=== PATIENT | female | born 1995 | race Caucasian/White ===

== ENCOUNTER 2024-07-07 16:44 | Outpatient (CLI) | payer OTHER, SELFPAY ==
--- NOTE | ~2024-07-07 | XR_ITS ---
CHEST RADIOGRAPH, PA AND LATERAL CLINICAL HISTORY: SOB . COMPARISON: None available TECHNIQUE: PA and lateral views of the chest. FINDINGS The cardiomediastinal silhouette is unremarkable. The lungs are clear. Visualized osseous structures and soft tissues are unremarkable. IMPRESSION: No focal infiltrate or effusion. Reviewed, dictated and finalized at location A.
--- OUTSIDE RECORDS SUMMARY | 2024-07-07 17:56 | XMS_ITS | Clinical Summary ---
Author Organization [facility] Address [address] [place] [address] Care Team Providers Care Lubrication Supervisor Name Role Phone None, Provider MD Primary Care Provider Unavaila ble Allergies Active Allergy Reactions Criticality Noted Date Comments Penicillins Itching 03/20/2020 Medications albuterol sulfate HFA 108 (90 Base) MCG/ACT inhalerIndications: Acute bronchitis Inhale 2 puffs into the lungs every 4 (four) hours as needed for Wheezing. 1 Inhaler 0 Active traMADol (ULTRAM) 50 MG tabletIndications:A cute Pain < 7 Day Supply Indications : Acute Pain < 7 Day Supply 1-2 tabs po q6 hours prn pain 16 tablet 4 Active ondansetron (ZOFRAN-ODT) 4 MG disintegrating tablet Take 1 tablet (4 mg total) by mouth every 8 (eight) hours as needed for Nausea. 12 tablet 4 Active Encounters Date Type Department Care Team Description 05/21/2024 9:08 AM CARRIAGE OPERATOR - 05/21/2024 11:59 PM [facility] Hospital Encounter [facility] [address] [facility] [place] [address] Gracie Richter, EMULSION OPERATOR- Discharge Disposition: Home or Self Care (Routine Discharge) 05/21/2024 Travel from Last 3 Months Social History Tobacco Use Types Packs/Day Years Used Date Smoking Tobacco: Never Smokeless Tobacco: Never Tobacco Cessation:Counseling Given: Not Answered Alcohol Use Standard Drinks/Week Comments Not Currently 0 (1 standard drink = 0.6 oz pur e alcohol) Comments No Sex and Gender Information Value Date Recorded Sex Assigned at Female 05/13/2024 8:33 AM CARRIAGE OPERATOR Legal Sex Female 6:16 PM CDT Gender Identity Not on file Sexual Orientation Not on file Last Filed Vital Signs Vital Sign Reading Time Taken Comments Blood Pressure 122/105 06/27/2023 1:00 PM CARRIAGE OPERATOR Pulse 88 06/27/2023 10:18 AM CARRIAGE OPERATOR Temperature 36 C (96.8 F) 06/27/2023 10:18 AM CARRIAGE OPERATOR Respiratory Rate 16 06/27/2023 10:18 AM CARRIAGE OPERATOR Oxygen Saturation 98% 06/27/2023 11:30 AM CARRIAGE OPERATOR Inhaled Oxygen Concentration - - Weight 104.3 kg (230 lb) 05/21/2024 9:00 AM CARRIAGE OPERATOR Height 162.6 cm (5' 4 ) 06/27/2023 10:18 AM CARRIAGE OPERATOR Body Mass Index 39.48 06/27/2023 10:18 AM CARRIAGE OPERATOR Plan of Treatment Health Maintenance Due Date Last Done Comments Cervical Cancer Screening Pa p Smear (Age 21 to 29) Every 3 Years 1994 Cervical Cancer Screening 1994 Annual Physical 1997 Hepatitis C 2012 DTaP, Tdap and Td Vaccines ( 1 - Tdap) 2013 Hepatitis B Vaccines (1 of 3 - 19+ 3-dose series) 2013 COVID-19 Vaccine (2023-2 5 season) 2023 Influenza Adult (#1) 2024 HPV Vaccines Aged Out No longer eligi ble based on patient's age to complete this topic Meningococcal B Vaccine Aged Out No l onger eligible based on patient's age to complete this topic Meningococcal Vaccine Aged Out No jackie ana luisa eligible based on patient's age to complete this topic Pneumococcal Vaccine: Pediat rics (0 to 5 Years) and At-Risk Patients (6 to 64 Years) Aged Out No longer eligible b ased on patient's age to complete this topic RSV Immunizations Under 20 Months Aged Out No longer eligible based on patient's age to complete this topic Procedures Procedure Name Priority Date/Time Associated Diagnosis Comments NM HEPATOBILIARY SCAN W/GB EJECTION FRACTION Routine 05/21/2024 11:04 AM CARRIAGE OPERATOR Right upper quadrant abdominal pain from Last 3 Months Results * NM HEPATOBILIARY SCAN W/GB EJECTION FRACTION (05/21/2024 11:04 AM CARRIAGE OPERATOR) Anatomical Region Laterality Modality Abdomen Nuclear Medicine 05/21/2024 11:5 3 AM CARRIAGE OPERATOR Impressions 05/21/2024 11:54 AM CARRIAGE OPERATOR IMPRESSION: Within normal limits. Ordered By: GRACIE RICHTER Interpreted By: Gerald Rangel MD, 05/21/2024 11:53 AM Narrative 05/21/2024 11:54 AM CARRIAGE OPERATOR [address] [place] [address] Examination: Hepatobiliary scan with gallbladder ejection fraction. Exam time: 0920 hours. Clinical history: Right upper quadrant pain radiating to the back. Nausea. Diarrhea. Comparison: None. Radiopharmaceutical: 6.1 mCi 99m Tc Choletec. Technique: Serial camera images. Findings: There is homogeneous uptake of the radiopharmaceutical by the liver. No focal areas of abnormal uptake are identified. There is prompt visualization of activity within the gallbladder, biliary tree and small bowel. A dose of CCK was subsequently administered intravenously and the gallbladder ejection fraction calculated. This is within normal limits at 93%. Procedure Note Gerald Rangel MD - 05/21/[address] [place] [address] Examination: Hepatobiliary scan with gallbladder ejection fraction. Exam time: 0920 hours. Clinical history: Right upper quadrant pain radiating to the back. Nausea.Diarrhea. Comparison: None. Radiopharmaceutical: 6.1 mCi 99m Tc Choletec. Technique: Serial camera images. Findings: There is homogeneous uptake of the radiopharmaceutical by theliver. No focal areas of abnormal uptake are identified. There is promptvisualization of activity within the gallbladder, biliary tree and smallbowel. A dose of CCK was subsequently administered intravenously and thegallbladder ejection fraction calculated. This is within normal limits at93%. IMPRESSION: Within normal limits. Ordered By: GRACIE RICHTER Interpreted By: Gerald Rangel MD, 05/21/2024 11:53 AM Gracie Rober EMULSION OPERATOR-BC NUC MED Final Res ult from Last 3 Months Insurance GREEN Care Teams Lubrication Supervisor Relationship Specialty Start Date End Date None, Provider, PCP - General 03/20/20
== END 2024-07-07 16:45 | disposition home or self-care (01) ==
DX: R06.02 Shortness of breath (principal)
CPT/HCPCS: 71046

== ENCOUNTER 2024-08-06 21:49 | Emergency (ER) | payer SELFPAY ==
[2024-08-06 21:50] VITALS: BP 142/89; PULSE 93; RESP 18; TEMP 36.7; O2SAT 100
--- OUTSIDE RECORDS SUMMARY | 2024-08-06 21:51 | XMS_ITS | Clinical Summary ---
Author Organization [facility] Address [address] [place] [id number] Care Team Providers Care Correspondence Specialist Name Role Phone None, Provider MD Primary [...] Department Care Team Description 05/21/2024 9:08 AM PHOTOGRAPHY TEACHER - 05/21/2024 11:59 PM [facility] Hospital Encounter [facility] [address] [place] [address] Gracie Richter, SENIOR HYDROGEOLOGIST- Discharge Disposition: Home or Self Care (Routine [...] Sex Assigned at Female 05/13/2024 8:33 AM PHOTOGRAPHY TEACHER Legal Sex Female 6:16 PM CDT Gender Identity Not on file Sexual Orientation Not on file Last Filed Vital Signs Vital Sign Reading Time Taken Comments Blood Pressure 122/105 06/27/2023 1:00 PM PHOTOGRAPHY TEACHER Pulse 88 06/27/2023 10:18 AM PHOTOGRAPHY TEACHER Temperature 36 C (96.8 F) 06/27/2023 10:18 AM PHOTOGRAPHY TEACHER Respiratory Rate 16 06/27/2023 10:18 AM PHOTOGRAPHY TEACHER Oxygen Saturation 98% 06/27/2023 11:30 AM PHOTOGRAPHY TEACHER Inhaled Oxygen Concentration - - Weight 104.3 kg (230 lb) 05/21/2024 9:00 AM PHOTOGRAPHY TEACHER Height 162.6 cm (5' 4 ) 06/27/2023 10:18 AM PHOTOGRAPHY TEACHER Body Mass Index 39.48 06/27/2023 10:18 AM PHOTOGRAPHY TEACHER Plan of Treatment Upcoming Encounters Date Type Department Care Team (Late st Contact Info) Description 08/11/2024 9:00 AM CDT Appointment [facility] [address] [place] [address] Paul Guerra, PT [address] [place] [address] Health Maintenance Due Date Last Done Comments Cervical Cancer Screening Pa p Smear (Age 21 to 29) Every 3 Years 1994 Cervical Cancer Screening 1994 Annual Physical 1997 Hepatitis C 2012 DTaP, Tdap and Td Vaccines ( 1 - Tdap) 2013 Hepatitis B Vaccines (1 of 3 - 19+ 3-dose series) 2013 COVID-19 Vaccine (2023-2 5 season) 2023 HPV Vaccines Aged Out No longer eligi [...] W/GB EJECTION FRACTION Routine 05/21/2024 11:04 AM PHOTOGRAPHY TEACHER Right upper quadrant abdominal pain from Last 3 Months Results * NM HEPATOBILIARY SCAN W/GB EJECTION FRACTION (05/21/2024 11:04 AM PHOTOGRAPHY TEACHER) Anatomical Region Laterality Modality Abdomen Nuclear Medicine 05/21/2024 11:5 3 AM PHOTOGRAPHY TEACHER Impressions 05/21/2024 11:54 AM PHOTOGRAPHY TEACHER IMPRESSION: Within normal limits. Ordered By: GRACIE RICHTER Interpreted By: Gerald Rangel MD, 05/21/2024 11:53 AM Narrative 05/21/2024 11:54 AM PHOTOGRAPHY TEACHER [address] [place] [address] Examination: Hepatobiliary scan with gallbladder ejection fraction. [...] Procedure Note Gerald Rangel MD - 05/21/[address] [place] [address] Examination: Hepatobiliary scan with gallbladder ejection fraction. [...] Gerald Rangel MD, 05/21/2024 11:53 AM Gracie Richter SENIOR HYDROGEOLOGIST-BC NUC MED Final Res ult from Last 3 Months Insurance GREEN GREEN Care Teams Correspondence Specialist Relationship Specialty Start Date End Date None, ProviderMD PCP - General 03/20/20
--- NOTE | 2024-08-06 22:04 | ED.GENADULT ---
HPI - General Adult General Chief complaint: Upper Respiratory Infection Stated complaint: difficulty swallowing Time Seen by Provider: 08/06/24 22:02 History of Present Illness HPI narrative: 28 YEARS OLD WHITE FEMALE CAME TO THE ED BY PRIVATE CAR FROM HOME WITH HER MOTHER COMPLAINING OF DIFFICULTY SWALLOWING FOR MONTHS, SCHEDULED FOR SWALLOWING STUDY BY HER FAMILY PHYSICIAN, IN THE LAST 48 HOUR BEEN HAVING BODY ACHES, FEVER 99-100.2, NOT FEELING WELL, HAVE A LOT OF STRESS LATELY. PAST MEDICAL HISTORY OF ANXIETY AND DEPRESSION. Related Data Allergies Allergy/AdvReac Type Severity Reaction Status Date / Time Penicillins Allergy Unknown Hives / Verified 08/06/24 21:55 Red Face Review of Systems Review of Systems: All systems reviewed & are unremarkable except as noted in HPI and below Exam Narrative: GENERAL APPEARANCE: WELL-DEVELOPED, WELL-NOURISHED SKIN: NORMAL COLOR HEAD: NORMOCEPHALIC, NONTRAUMATIC EYES: CLEAR CONJUNCTIVA ENT: OROPHARYNX NORMAL, EARS NORMAL, NOSE NORMAL , LARGE TONSILS WITHOUT SECRETIONS. NECK: SUPPLE, NONTENDER CHEST AND RESPIRATORY: AIRWAY PATENT, NO RESPIRATORY DISTRESS, NO ACCESSORY MUSCLE USE HEART: REGULAR RATE/RHYTHM ABDOMEN: SOFT, NONTENDER, NO ORGANOMEGALY, QUIET BOWEL SOUNDS VASCULAR: NORMAL PERIPHERAL PULSES, NORMAL CAPILLARY REFILL. MUSCULOSKELETAL: NORMAL RANGE OF MOTION, NONTENDER BACK NEUROLOGIC: ALERT AND ORIENTED ?3, AGRONOMY TECHNICIAN IS NORMAL TESTED, NO GROSS MOTOR DEFICIT Course Vital Signs Vital signs: Vital Signs Temperature 36.7 C 08/06/24 21:50 Pulse Rate 93 08/06/24 21:50 Respiratory Rate 18 08/06/24 21:50 Blood Pressure 142/89 H 08/06/24 21:50 Pulse Oximetry 100 08/06/24 21:50 Oxygen Delivery Room Air 08/06/24 21:50 Temperature 36.7 C 08/06/24 21:50 Pulse Rate 93 08/06/24 21:50 Respiratory Rate 18 08/06/24 21:50 Blood Pressure 142/89 H 08/06/24 21:50 Pulse Oximetry 100 08/06/24 21:50 Oxygen Delivery Room Air 08/06/24 21:50 Medical Decision Making MDM Narrative Medical decision making narrative: patient came with trouble swallowing for months, sore throat for the last couple days, 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 Vital signs showing blood pressure 142/89 Physical examination unremarkable except looks depressed, history of depression on anti depression medication Patient tested negative for strep, COVID, flu, RSV and mono. Patient received 1 mg of Ativan p.o. in the ED Diagnosis pharyngitis, dysphagia, discharged on Protonix. Patient is scheduled to see ear nose and throat soon for further evaluation for the dysphagia. Vital Signs Vital Signs: Vital Signs Temperature 36.7 C 08/06/24 21:50 Pulse Rate 93 08/06/24 21:50 Respiratory Rate 18 08/06/24 21:50 Blood Pressure 142/89 H 08/06/24 21:50 Pulse Oximetry 100 08/06/24 21:50 Oxygen Delivery Room Air 08/06/24 21:50 Temperature 36.7 C 08/06/24 21:50 Pulse Rate 93 08/06/24 21:50 Respiratory Rate 18 08/06/24 21:50 Blood Pressure 142/89 H 08/06/24 21:50 Pulse Oximetry 100 08/06/24 21:50 Oxygen Delivery Room Air 08/06/24 21:50 Lab Data Labs: Lab Results 08/06/24 08/06/24 08/06/24 Range/Units 21:54 22:17 23:25 Urine Color Light yellow (Yellow) Urine Appearance Clear (Clear) Urine pH 5.5 (5.0-8.0) Ur Specific [place] <= 1.005 L (1.010-1.020) Urine Protein Negative (Negative) Urine Glucose (UA) Negative (Negative) Urine Ketones 1+ H (Negative) Ur Blood (Man) Negative (Negative) Urine Nitrate Negative (Negative) Urine Bilirubin Negative (Negative) Urine Urobilinogen 0.2 (0.2-1.0) mg/dL Ur Leukocyte Esterase Cancelled Leukocyte Esterase Rfl Trace H (Negative) RIAN/UL Urine RBC 0-2 (0-2) /hpf Urine WBC 0-3 (0-3) /hpf Ur Squamous Epith Cells Few (Few) /hpf Bilirubin Crystals Cancelled Urine Bacteria Trace (None) /hpf Urine Casts Cancelled Broad Casts Cancelled Urine Test Negative Sperm Presence Cancelled Monoscreen Negative (Negative) Influenza A (RT-PCR) Negative (Negative) Influenza B (RT-PCR) Negative (Negative) RSV (RT-PCR) Negative (Negative) SARS-CoV-2 RNA (RT-PCR) Negative (Negative) Group A Strep (PCR) Not detected (Negative) Discharge Plan Discharge Clinical Impression: Dysphagia, Pharyngitis Patient Disposition: Home Condition: Stable Instructions: Pharyngitis (ED), Dysphagia (ED) Additional Instructions: Return if symptoms are worsening , call your family physician for appointment, take Tylenol as as needed for aches and pain, continue home medications. Patient Language: Citizen Of [place] Prescriptions: New pantoprazole [Protonix] 40 mg tablet,delayed release (DR/EC) 40 mg PO QAM 30 Days Qty: 30 0RF No Action norethindrone ac-eth estradiol [05/17 (21)] 1-20 mg-mcg tablet 1 tablet PO DAILY Qty: 21 0RF Rx Instructions: PT NEEDS TO BE SEEN IN THE OFFICE Follow-up/Referrals: Rafal Casillas MD [Physician] - 08/09/24 UNKNOWN,DOCTOR [Non-Staff] -
--- NOTE | 2024-08-06 22:08 | PC.NURSE ---
pt aware urine specimen is needed. pt unable to go at this time.
--- OUTSIDE RECORDS SUMMARY | 2024-08-06 22:21 | XMS_ITS | Clinical Summary ---
Author Organization [facility] Address [address] [place] [id number] Care Team Providers Care Security Systems Integrator Name Role Phone None, Provider MD Primary [...] Department Care Team Description 05/21/2024 9:08 AM CUBE CUTTER - 05/21/2024 11:59 PM [facility] Hospital Encounter [facility] [address] [facility] [place] [address] Gracie Richter, GARDENING MANAGER- Discharge Disposition: Home or Self Care (Routine [...] Sex Assigned at Female 05/13/2024 8:33 AM CUBE CUTTER Legal Sex Female 6:16 PM CDT Gender Identity Not on file Sexual Orientation Not on file Last Filed Vital Signs Vital Sign Reading Time Taken Comments Blood Pressure 122/105 06/27/2023 1:00 PM CUBE CUTTER Pulse 88 06/27/2023 10:18 AM CUBE CUTTER Temperature 36 C (96.8 F) 06/27/2023 10:18 AM CUBE CUTTER Respiratory Rate 16 06/27/2023 10:18 AM CUBE CUTTER Oxygen Saturation 98% 06/27/2023 11:30 AM CUBE CUTTER Inhaled Oxygen Concentration - - Weight 104.3 kg (230 lb) 05/21/2024 9:00 AM CUBE CUTTER Height 162.6 cm (5' 4 ) 06/27/2023 10:18 AM CUBE CUTTER Body Mass Index 39.48 06/27/2023 10:18 AM CUBE CUTTER Plan of Treatment Upcoming Encounters Date Type Department Care Team (Late st Contact Info) Description 08/11/2024 9:00 AM CDT Appointment [facility] [address] [place] [address] Paul Guerra, PT [address] [place] [address] Health Maintenance Due Date Last [...] W/GB EJECTION FRACTION Routine 05/21/2024 11:04 AM CUBE CUTTER Right upper quadrant abdominal pain from Last 3 Months Results * NM HEPATOBILIARY SCAN W/GB EJECTION FRACTION (05/21/2024 11:04 AM CUBE CUTTER) Anatomical Region Laterality Modality Abdomen Nuclear Medicine 05/21/2024 11:5 3 AM CUBE CUTTER Impressions 05/21/2024 11:54 AM CUBE CUTTER IMPRESSION: Within normal limits. Ordered By: GRACIE RICHTER Interpreted By: Gerald Rangel MD, 05/21/2024 11:53 AM Narrative 05/21/2024 11:54 AM CUBE CUTTER [address] [place] [address] Examination: Hepatobiliary scan with gallbladder ejection fraction. [...] Procedure Note Gerald Rangel MD - 05/21/[address] [place] [address] Examination: Hepatobiliary scan with gallbladder ejection fraction. [...] Rangel MD, 05/21/2024 11:53 AM Gracie Richter GARDENING MANAGER-BC NUC MED Final Res ult from Last 3 Months Insurance GREEN GREEN Care Teams Security Systems Integrator Relationship Specialty Start Date End Date None, ProviderMD PCP - General 03/20/20
[2024-08-06 22:25] LABS: Monoscreen Negative (Negative); Positive Monotest Control Positive (Positive)
[2024-08-06 22:26] LABS: Negative Monotest Control Negative (Negative)
[2024-08-06 22:40] LABS: Strep Group A RT-PCR NOT DETECTED (Negative)
[2024-08-06 22:42] LABS: Influenza A QL RT-PCR Negative (Negative); Influenza B QL RT-PCR Negative (Negative); RSV RNA, RT-PCR Negative (Negative); SARS-CoV-2 RNA PCR Negative (Negative)
[2024-08-06] MEDS: LORazepam (*CRX) 1 MG TABLET PO (22:44)
[2024-08-06 23:42] LABS: Add Urine Microscopic? YES; Appearance Urine Clear (Clear); Bilirubin Urine Negative (Negative); Blood Urine Negative (Negative); Color Urine Light Yellow (Yellow); Glucose Urine UA Negative (Negative); Ketones Urine 1+ (Negative); Leukocyte Esterase Ur Trace LEU/UL (Negative); Nitrate Urine Negative (Negative); Protein Urine Negative (Negative); Specific Grav Ur <= 1.005 (1.010-1.020); Urobilinogen Urine 0.2 mg/dL (0.2-1.0); pH Urine 5.5 (5.0-8.0)
[2024-08-06 23:43] LABS: Bacteria Urine Trace /hpf; Pregnancy On Board Control Positive; RBC Urine 0-2 /hpf (0-2); Squamous Epithelial Cell Urine Few /hpf (Few); Urine Pregnancy Test Negative; WBC Urine 0-3 /hpf (0-3)
[2024-08-07 00:09] VITALS: BP 140/82; PULSE 90; RESP 17; TEMP 36.7; O2SAT 100
== END 2024-08-07 00:11 | disposition home or self-care (01) ==
PROVIDERS: Emergency Provider Emergency Medicine
DX: R13.10 Dysphagia, unspecified (principal); J02.9 Acute pharyngitis, unspecified; Z20.822 Contact with and (suspected) exposure to COVID-19
CPT/HCPCS: 36415; 81001; 81025; 86308; 87637; 87651; 99283; A9270

== ENCOUNTER 2024-08-12 07:51 | Outpatient (CLI) | payer MEDICAID, SELFPAY ==
--- NOTE | ~2024-08-12 | US_ITS ---
EXAMINATION: US thyroid DATE: 08/12/2024 08:08 INDICATION: Dysphagia TECHNIQUE: Multiple ultrasound images of the thyroid were obtained. COMPARISON: None. FINDINGS: The right thyroid lobe measures 6.7 x 2.5 x 1.7 cm. The left thyroid lobe measures 5.7 x 1.6 x 1.5 c m. Thyroid isthmus measures 3 mm in thickness. No discrete nodules identified. There is normal echote xture, echogenicity and vascular flow throughout the thyroid gland. IMPRESSION: 1. Normal thyroid ultrasound. Reviewed, dictated and finalized at location A.
--- OUTSIDE RECORDS SUMMARY | 2024-08-12 07:56 | XMS_ITS | Encounter Summary ---
Author Organization [facility] Address Critical access hospital[address] [place] [address] Care Team Providers Care Metal Bonding Crib Attendant Name Role Phone None, Provider MD Primary Care Provider Unavaila ble Encounter Details Date Type Department Care Team (Late Contact Info) Description 08/09/2024 Orders Only [facility] [address] [place] [address] Jennifer Swenson, LIME SUPERVISOR [address] [address] Social History Tobacco Use Types Packs/Day Years Used Date Smoking Tobacco: Never Smokeless Tobacco: Never Alcohol Use Standard Drinks/Week Comments Not Currently 0 (1 standard drink = 0.6 oz pur e alcohol) Comments No Sex and Gender Information Value Date Recorded Sex Assigned at Female 05/13/2024 8:33 AM EXECUTIVE MEETING MANAGER Legal Sex Female 6:16 PM CDT Gender Identity Not on file Sexual Orientation Not on file documented as of this encounter Plan of Treatment Upcoming Encounters Date Type Department Care Team (Late Contact Info) Description 08/18/2024 9:00 AM CDT Appointment [facility] [address] [place] [address] Marylin Vazquez, PT [address] [place] [address] 08/27/2024 11:00 AM CDT Appointment [facility] [address] [place] [address] Samm Farah, NEEDLE LOOM SETTER [address] [place] [address] Carmella King, [place] [address] documented as of this encounter Results * THYROXINE, FREE (FT4) (08/09/2024 1:10 PM CDT) [facility] FREE T4 0.91 0.76 - 1.46 NG/DL 08/09/2024 1:42 PM CDT [facility] 08/09/2024 1:10 PM CDT us Jennifer Swenson APRN LABORATORY Final Re sult Performing Organization Address [facility] Co de Phone Number [facility] [address] [place] [address], [place] [phone] * THYROID STIM HORMONE TSH (08/09/2024 1:10 PM CDT) [facility] TSH 0.708 0.358 - 3.740 uIU/ML 08/09/2024 1:42 PM CDT [facility] Comment: ASSAY PERFORMED BY CHEMILUMINESCENT IMMUNOASSAY METHODOLOGY USING SIEMENS DIMENSION REAGENT. PATIENT RESULTS DETERMINED BY ASSAYS FROM DIFFERENT MANUFACTURERS AND/OR BY DIFFERENT METHODS MAY NOT BE COMPARABLE. 08/09/2024 1:10 PM CDT us Jennifer Swenson APRN LABORATORY Final Re sult [facility] [address] [place] [address], [place] [phone] * HETEROPHILE ANTIBODIES,SCREEN (08/09/2024 1:10 PM CDT) [facility] MONO TEST NEGATIVE NEGATIVE 08/09/2024 2:51 PM CDT [facility] 08/09/2024 1:10 PM CDT us Jennifer Riojast LIME SUPERVISOR LABORATORY Final Re sult Performing Organization Address [facility] Co de Phone Number [facility] [address] [place] [address], * MISCELLANEOUS LAB TEST (08/09/2024 1:10 PM CDT) TEST NAME: BRENDA BISHOP VIRUS DNA QUANTITATIVE REAL TIME PCR [id number] 08/09/2024 1:12 PM CDT [facility] SPECIMEN TYPE PLASMA EDTA 08/09/2024 1:12 PM CDT [facility] TEST RESULT: Flexitest 1 08/11/2024 10:15 PM CDT [employer] DEVIKA SCHAFFER Comment: Flexitest 1 Brenda Bishop Virus DNA, QN Real Time PCR, Plasma EBV DNA, QN PCR Not Detected IU/mL EBV DNA, QN PCR Not Detected Log IU/mL Reference Range: Not Detected For additional information, please refer to http://education.[employer]/faq/CMVandEBVPCR (This link is being provided for informational/ educational purposes only.) Test Performed by [employer] Corporation[employer]ah, [employer] [facility], [address] [place] [address] Dario Leon M.D., Ph.D., Director of Laboratories , [facility] [id number] 08/09/2024 1:10 PM CDT Jennifer Swenson LIME SUPERVISOR LABORATORY Final Re sult Performing Organization Address City/[facility]/ZIP Co de Phone Number [facility] [address] [place] [address], [place] [phone] [facility] [address] [place] [address], * (ABNORMAL) COMPREHENSIVE METABOLIC PANEL (08/09/2024 1:10 PM CDT) [facility] SODIUM S/P/B 137 136 - 145 MMOL/L 08/09/2024 1:42 PM CDT [facility] POTASSIUM S/P/B 3.8 3.5 - 5.1 MMOL/L 08/09/2024 1:42 PM CDT [facility] CHLORIDE S/P/B 101 98 - 107 MMOL/L 08/09/2024 1:42 PM CDT [facility] CO2 31.8 21.0 - 32.0 MMOL/L 08/09/2024 1:42 PM CDT [facility] GLUCOSE 86 70 - 99 MG/DL 08/09/2024 1:42 PM CDT [facility] Comment: FASTING GLUCOSE 100 TO 125 MG/DL IS CONSISTENT WITH IMPAIRED FASTING GLUCOSE. FASTING GLUCOSE >125 MG/DL IS CONSISTENT WITH DIABETES. RANDOM GLUCOSE >200 MG/DL WITH HYPERGLYCEMIC SYMPTOMS IS CONSISTENT WITH DIABETES. PER ADA GUIDELINES BUN 6 6 - 24 MG/DL 08/09/2024 1:42 PM CDT [facility] CREATININE S/P/B 0.78 0.55 - 1.02 MG/DL 08/09/2024 1:42 PM CDT [facility] CALCIUM S/P/B 9.2 8.4 - 10.5 MG/DL 08/09/2024 1:42 PM CDT [facility] BILIRUBIN TOTAL S/P/B 0.4 0.2 - 1.0 MG/DL 08/09/2024 1:42 PM CDT [facility] Comment: THIS ASSAY IS NOT RECOMMENDED FOR PATIENTS UNDERGOING TREATMENT WITH ELTROMBOPAG DUE TO THE POTENTIAL FOR FALSELY ELEVATED RESULTS. ALKALINE PHOSPHATASE S/P/B 62 37 - 98 U/L 08/09/2024 1:42 PM CDT [facility] AST 17 15 - 37 U/L 08/09/2024 1:42 PM CDT [facility] ALT 18 14 - 59 U/L 08/09/2024 1:42 PM CDT [facility] TOTAL PROTEIN S/P/B 7.4 6.4 - 8.2 G/DL 08/09/2024 1:42 PM CDT [facility] ALBUMIN S/P/B 3.7 3.4 - 5.0 G/DL 08/09/2024 1:42 PM CDT [facility] ANION GAP 4.2(L) 5.0 - 15.0 MMOL/L 08/09/2024 1:42 PM CDT [facility] OSMOLALITY (CALC) 281 MOSM/KG 025 1:42 PM CDT [facility] Comment:REFERENCE RANGE NOT ESTABLISHED GFR ESTIMATE >90 >89 ML/MIN/1. 73 M2 08/09/2024 1:42 PM CDT [facility] GFR NOTES GFR REFERENCE S: 08/09/2024 1:42 PM CDT [facility] Comment: THE ESTIMATED GFR IS CALCULATED USING THE 2020 CKD-EPI EQUATION. THE FOLLOWING CATEGORIES FOR GRADING RENAL FUNCTION ARE RECOMMENDED BY THE INTERNATIONAL SOCIETY OF NEPHROLOGY (KDIGO 2012 CLINICAL PRACTICE GUIDELINE). G1,NORMAL OR HIGH: >89 ml/min/1.73 m2 G2,MILDLY DECREASED: 60-89 ml/min/1.73 m2 G3A,MILDLY TO MODERATELY DECREASED: 45-59 ml/min/1.73 m2 G3B,MODERATELY TO SEVERELY DECREASED: 30-44 ml/min/1.73 m2 G4,SEVERELY DECREASED: 15-29 ml/min/1.73 m2 G5,KIDNEY FAILURE: <15 ml/min/1.73 m2 08/09/2024 1:10 PM CDT Jennifer Swenson LIME SUPERVISOR LABORATORY Final Re sult [facility] [address] [place] [address], * (ABNORMAL) CBC W/DIFF AUTOMATED (08/09/2024 1:10 PM CDT) WBC 8.93 4.00 - 10.80 x10'3/uL 08/09/2024 1:16 PM CDT [facility] RBC 4.36 4.10 - 5.40 x10'6/uL 08/09/2024 1:16 PM CDT [facility] HGB 14.1 12.0 - 16.0 G/DL 08/09/2024 1:16 PM CDT [facility] HCT 39.2 36.0 - 47.0 % 08/09/2024 1:16 PM CDT [facility] MCV 89.9 78.0 - 100.0 FL 08/09/2024 1:16 PM CDT [facility] MCH 32.3(H) 27.0 - 31.0 PG 08/09/2024 1:16 PM CDT [facility] MCHC 36.0 33.0 - 36.0 G/DL 08/09/2024 1:16 PM CDT [facility] RDW 11.7 11.5 - 14.5 % 08/09/2024 1:16 PM CDT [facility] PLT 374(H) 150 - 350 x10'3/uL 08/09/2024 1:16 PM CDT [facility] MPV 9.3 7.4 - 10.4 FL 08/09/2024 1:16 PM CDT [facility] CBC COMMENT NORMAL REFERENCE RANGE NOT ESTABLISHED FOR THE PROPORTIONAL LEUKOCYTE DIFFERENTIAL. 08/09/2024 1:16 PM CDT [facility] NEUTROPHILS % 67.4 % 08/09/2024 1:16 PM CDT [facility] LYMPHOCYTES % 25.4 % 08/09/2024 1:16 PM CDT [facility] MONOCYTES % 5.6 % 08/09/2024 1:16 PM CDT [facility] EOSINOPHILS % 1.2 % 08/09/2024 1:16 PM CDT [facility] BASOPHILS % 0.2 % 08/09/2024 1:16 PM CDT [facility] IMMATURE GRANS % 0.2 % 08/10/19 1:16 PM CDT [facility] NRBC % 0.0 % 08/09/2024 1:16 PM CDT [facility] ABS. NEUTROPHILS 6.01 1.60 - 8.30 x10'3/uL 08/09/2024 1:16 PM CDT [facility] ABS. LYMPHOCYTES 2.27 0.80 - 4.70 x10'3/uL 08/09/2024 1:16 PM CDT [facility] ABS. MONOCYTES 0.50 0.00 - 1.50 x10'3/uL 08/09/2024 1:16 PM CDT [facility] ABS. EOSINOPHILS 0.11 0.00 - 0.40 x10'3/uL 08/09/2024 1:16 PM CDT [facility] ABS. BASOPHILS 0.02 0.00 - 0.20 x10'3/uL 08/09/2024 1:16 PM CDT [facility] ABS. IMMATURE GRANULOCYTES 0.02 0.00 - 0.03 x10'3/uL 08/09/2024 1:16 PM CDT [facility] ABS. NUCLEATED RBC'S 0.00 0.00 - 0.01 x10'3/uL 08/09/2024 1:16 PM CDT [facility] 08/09/2024 1:10 PM CDT Jennifer Swenson APRN LABORATORY Final Re sult [facility] [address] [place] [address], documented in this encounter Visit Diagnoses Diagnosis Acute pharyngitis- Primary Other dysphagia documented in this encounter Care Teams Metal Bonding Crib Attendant Relationship Specialty Start Date End Date None, Provider, PCP - General 03/20/20 documented as of this encounter
--- OUTSIDE RECORDS SUMMARY | 2024-08-12 07:56 | XMS_ITS | Clinical Summary ---
Author Organization [facility] Address [address] [place] [address] Care Team Providers Care Medical Parasitologist Name Role Phone None, Provider MD Primary [...] Encounters Date Type Department Care Team Description 08/09/2024 12:54 PM CDT - 08/09/2024 11:59 PM CDT [place] [address] [id number] Jennifer Swenson, WIND TUNNEL ENGINEER Arrived Discharge Disposition: Home or Self Care (Routine Discharge) 08/09/[address] [place] [address] [address] [id number] Jennifer Swenson, WIND TUNNEL ENGINEER 08/09/2024 Travel 05/21/2024 9:08 AM BRAZER RESISTANCE - 05/21/2024 11:59 PM BRAZER RESISTANCE Hospital Encounter [facility] [address] [id number] [facility] Discharge Disposition: Home or Self Care (Routine [...] Sex Assigned at Female 05/13/2024 8:33 AM BRAZER RESISTANCE Legal Sex Female 6:16 PM CDT Gender Identity Not on file Sexual Orientation Not on file Last Filed Vital Signs Vital Sign Reading Time Taken Comments Blood Pressure 122/105 06/27/2023 1:00 PM BRAZER RESISTANCE Pulse 88 06/27/2023 10:18 AM BRAZER RESISTANCE Temperature 36 C (96.8 F) 06/27/2023 10:18 AM BRAZER RESISTANCE Respiratory Rate 16 06/27/2023 10:18 AM BRAZER RESISTANCE Oxygen Saturation 98% 06/27/2023 11:30 AM BRAZER RESISTANCE Inhaled Oxygen Concentration - - Weight 104.3 kg (230 lb) 05/21/2024 9:00 AM BRAZER RESISTANCE Height 162.6 cm (5' 4 ) 06/27/2023 10:18 AM BRAZER RESISTANCE Body Mass Index 39.48 06/27/2023 10:18 AM BRAZER RESISTANCE Plan of Treatment Upcoming Encounters Date Type Department Care Team (Late st Contact Info) Description 08/18/2024 9:00 AM CDT Appointment [facility] [address] [place], [place] [id number] Marylin Vazquez, PT [address] [place] [address] 08/27/2024 11:00 AM CDT Appointment [facility] [address] [facility] [place] [address] Samm Farah, COMMUNITY CASE MANAGER [address] [place] [address] Carmella King, [address] [address] Health Maintenance Due Date Last Done Comments [...] 5 Years) and At-Risk Patients (6 to 49 Years) Aged Out No longer eligible b ased on patient's age to complete this topic RSV Immunizations Under 20 Months Aged Out No longer eligible based on patient's age to complete this topic Procedures Procedure Name Priority Date/Time Associated Diagnosis Comments THYROXINE, FREE (FT4) Routine 08/09/2024 1:10 PM CDT Acute pharyngitis Other dysphagia THYROID STIM HORMONE TSH Routine 08/09/2024 1:10 PM CDT Acute pharyngitis Other dysphagia HETEROPHILE ANTIBODIES,SCREEN Routine 08/09/2024 1:10 PM CDT Acute pharyngitis Other dysphagia MISCELLANEOUS LAB TEST Routine 1:10 PM CDT Acute pharyngitis Other dysphagia COMPREHENSIVE METABOLIC PANEL Routine 08/09/2024 1:10 PM CDT Acute pharyngitis Other dysphagia CBC W/DIFF AUTOMATED Routine 08/09/2024 1:10 PM CDT Acute pharyngitis Other dysphagia NM HEPATOBILIARY SCAN W/GB EJECTION FRACTION Routine 05/21/2024 11:04 AM BRAZER RESISTANCE Right upper quadrant abdominal pain from Last 3 Months Results * MISCELLANEOUS LAB TEST (08/09/2024 1:10 PM CDT) Pathologist [facility] TEST NAME: NATALIE BISHOP VIRUS DNA QUANTITATIVE REAL TIME PCR [id number] 08/09/2024 1:12 PM CDT [facility] SPECIMEN TYPE PLASMA EDTA 08/09/2024 1:12 PM CDT [facility] TEST RESULT: Flexitest 1 08/11/2024 10:15 PM CDT [employer] MILADYSЮЛИЯ SCHAFFER Comment: Flexitest 1 Natalie Bishop Virus DNA, QN Real Time PCR, Plasma EBV DNA, QN PCR Not Detected IU/mL EBV DNA, QN PCR Not Detected Log IU/mL Reference Range: Not Detected For additional information, please refer to http://education.[employer]/faq/CMVandEBVPCR (This link is being provided for informational/ educational purposes only.) Test Performed by [employer]ah, [employer] [facility], [address] [place] [address] Dario Leon M.D., Ph.D., Director of Laboratories , CLIA [id number] 08/09/2024 1:10 PM CDT Jennifer Swenson APRN LABORATORY Final Re sult [email or web address] [address] , [place] [phone] [facility] [place] [address], * (ABNORMAL) COMPREHENSIVE METABOLIC PANEL (08/09/2024 1:10 PM CDT) [facility] SODIUM S/P/B 137 136 - 145 MMOL/L 08/09/2024 1:42 PM CDT [facility] POTASSIUM S/P/B 3.8 3.5 - 5.1 MMOL/L 08/09/2024 1:42 PM CDT [facility] CHLORIDE S/P/B 101 98 - 107 MMOL/L 08/09/2024 1:42 PM CDT [facility] CO2 31.8 21.0 - 32.0 MMOL/L 08/09/2024 1:42 PM CDT [facility] GLUCOSE 86 70 - 99 MG/DL 08/09/2024 1:42 PM CDT [facility] Comment: FASTING GLUCOSE 100 TO 125 MG/DL IS CONSISTENT WITH IMPAIRED FASTING GLUCOSE. FASTING GLUCOSE >125 MG/DL IS CONSISTENT WITH DIABETES. RANDOM GLUCOSE >200 MG/DL WITH HYPERGLYCEMIC SYMPTOMS IS CONSISTENT WITH DIABETES. PER ADA GUIDELINES BUN 6 6 - 24 MG/DL 08/09/2024 1:42 PM CDT [facility] CREATININE S/P/B 0.78 0.55 - 1.02 MG/DL 08/09/2024 1:42 PM CDT [facility] CALCIUM S/P/B 9.2 8.4 - 10.5 MG/DL 08/09/2024 1:42 PM CDT [facility] BILIRUBIN TOTAL S/P/B 0.4 0.2 - 1.0 MG/DL 08/09/2024 1:42 PM CDT [facility] Comment: THIS ASSAY IS NOT RECOMMENDED FOR PATIENTS UNDERGOING TREATMENT WITH ELTROMBOPAG DUE TO THE POTENTIAL FOR FALSELY ELEVATED RESULTS. ALKALINE PHOSPHATASE S/P/B 62 37 - 98 U/L 08/09/2024 1:42 PM CDT [facility] AST 17 15 - 37 U/L 08/09/2024 1:42 PM CDT [facility] ALT 18 14 - 59 U/L 08/09/2024 1:42 PM CDT [facility] TOTAL PROTEIN S/P/B 7.4 6.4 - 8.2 G/DL 08/09/2024 1:42 PM CDT [facility] ALBUMIN S/P/B 3.7 3.4 - 5.0 G/DL 08/09/2024 1:42 PM CDT [facility] ANION GAP 4.2(L) 5.0 - 15.0 MMOL/L 08/09/2024 1:42 PM CDT [facility] OSMOLALITY (CALC) 281 MOSM/KG 025 1:42 PM CDT [facility] Comment:REFERENCE RANGE NOT ESTABLISHED GFR ESTIMATE >90 >89 ML/MIN/1. 73 M2 08/09/2024 1:42 PM CDT [facility] GFR NOTES GFR REFERENCE S: 08/09/2024 1:42 PM CDT [facility] Comment: THE ESTIMATED GFR IS CALCULATED [...] <15 ml/min/1.73 m2 08/09/2024 1:10 PM CDT us Jennifer Swenson APRN LABORATORY Final Re sult Performing Organization Address City/[facility]/ZIP Co de Phone Number [facility] [address] [place] [address], * HETEROPHILE ANTIBODIES,SCREEN (08/09/2024 1:10 PM CDT) MONO TEST NEGATIVE NEGATIVE 08/09/2024 2:51 PM CDT [facility] 08/09/2024 1:10 PM CDT us Jennifer Swenson WIND TUNNEL ENGINEER LABORATORY Final Re sult Performing Organization Address City/[facility]/ZIP Co de Phone Number [facility] [address] [place] [address], [place] [phone] * (ABNORMAL) CBC W/DIFF AUTOMATED (08/09/2024 1:10 PM CDT) WBC 8.93 4.00 - 10.80 x10'3/uL 08/09/2024 1:16 PM CDT [facility] RBC 4.36 4.10 - 5.40 x10'6/uL 08/09/2024 1:16 PM CDT [facility] HGB 14.1 12.0 - 16.0 G/DL 08/09/2024 1:16 PM CDT [facility] HCT 39.2 36.0 - 47.0 % 08/09/2024 1:16 PM CDT [facility] MCV 89.9 78.0 - 100.0 FL 08/09/2024 1:16 PM CDT [facility] MCH 32.3(H) 27.0 - 31.0 PG 08/09/2024 1:16 PM CDT [facility] MCHC 36.0 33.0 - 36.0 G/DL 08/09/2024 1:16 PM CDT [facility] RDW 11.7 11.5 - 14.5 % 08/09/2024 1:16 PM CDT [facility] PLT 374(H) 150 - 350 x10'3/uL 08/09/2024 1:16 PM CDT [facility] MPV 9.3 7.4 - 10.4 FL 08/09/2024 1:16 PM CDT [facility] CBC COMMENT NORMAL REFERENCE RANGE NOT ESTABLISHED FOR THE PROPORTIONAL LEUKOCYTE DIFFERENTIAL. 08/09/2024 1:16 PM CDT [facility] NEUTROPHILS % 67.4 % 08/09/2024 1:16 PM CDT [facility] LYMPHOCYTES % 25.4 % 08/09/2024 1:16 PM CDT [facility] MONOCYTES % 5.6 % 08/09/2024 1:16 PM CDT [facility] EOSINOPHILS % 1.2 % 08/09/2024 1:16 PM CDT [facility] BASOPHILS % 0.2 % 08/09/2024 1:16 PM CDT [facility] IMMATURE GRANS % 0.2 % 08/10/19 1:16 PM CDT [facility] NRBC % 0.0 % 08/09/2024 1:16 PM CDT [facility] ABS. NEUTROPHILS 6.01 1.60 - 8.30 x10'3/uL 08/09/2024 1:16 PM CDT [facility] ABS. LYMPHOCYTES 2.27 0.80 - 4.70 x10'3/uL 08/09/2024 1:16 PM CDT [facility] ABS. MONOCYTES 0.50 0.00 - 1.50 x10'3/uL 08/09/2024 1:16 PM CDT [facility] ABS. EOSINOPHILS 0.11 0.00 - 0.40 x10'3/uL 08/09/2024 1:16 PM CDT [facility] ABS. BASOPHILS 0.02 0.00 - 0.20 x10'3/uL 08/09/2024 1:16 PM CDT [facility] ABS. IMMATURE GRANULOCYTES 0.02 0.00 - 0.03 x10'3/uL 08/09/2024 1:16 PM CDT [facility] ABS. NUCLEATED RBC'S 0.00 0.00 - 0.01 x10'3/uL 08/09/2024 1:16 PM CDT [facility] 08/09/2024 1:10 PM CDT Jennifer Swenson APRN LABORATORY Final Re sult [facility] [address] [place] [address], * THYROXINE, FREE (FT4) (08/09/2024 1:10 PM CDT) FREE T4 0.91 0.76 - 1.46 NG/DL 08/09/2024 1:42 PM CDT [facility] 08/09/2024 1:10 PM CDT Jennifer Swenson APRN LABORATORY Final Re sult Performing Organization Address [facility] de Phone Number [facility] [address] [place] [address], [place] [phone] * THYROID STIM HORMONE TSH (08/09/2024 1:10 PM CDT) TSH 0.708 0.358 - 3.740 uIU/ML 08/09/2024 1:42 PM CDT [facility] Comment: ASSAY PERFORMED BY CHEMILUMINESCENT IMMUNOASSAY METHODOLOGY USING [employer] DIMENSION REAGENT. PATIENT RESULTS DETERMINED BY ASSAYS FROM DIFFERENT MANUFACTURERS AND/OR BY DIFFERENT METHODS MAY NOT BE COMPARABLE. 08/09/2024 1:10 PM CDT Jennifer Swenson APRN LABORATORY Final Mayuri harrison Performing Organization Address [facility] de Phone Number [facility] [address] [place] [address], [place] [phone] * NM HEPATOBILIARY SCAN W/GB EJECTION FRACTION (05/21/2024 11:04 AM BRAZER RESISTANCE) Anatomical Region Laterality Modality Abdomen Nuclear Medicine 05/21/2024 11:5 3 AM BRAZER RESISTANCE Impressions 05/21/2024 11:54 AM BRAZER RESISTANCE IMPRESSION: Within normal limits. Ordered By: GRACIE RICHTER Interpreted By: Gerald Rangel MD, 05/21/2024 11:53 AM Narrative 05/21/2024 11:54 AM BRAZER RESISTANCE [address] [place] [address] Examination: Hepatobiliary scan with gallbladder ejection fraction. [...] Procedure Note Gerald Rangel MD - 05/21/2024 [place] [address] [facility] [address] Examination: Hepatobiliary scan with gallbladder ejection fraction. [...] Rangel MD, 05/21/2024 11:53 AM Gracie Richter CIVIL ENGINEERING INTERN- [facility] Final Res ult from Last 3 Months Insurance [place] [employer] Care Teams Medical Parasitologist Relationship Specialty Start Date End Date None, Provider, PCP - General 03/20/20
== END 2024-08-12 07:52 | disposition home or self-care (01) ==
DX: R13.19 Other dysphagia (principal)
CPT/HCPCS: 76536

== ENCOUNTER 2024-08-25 12:38 | Outpatient (CLI) | payer MEDICAID, SELFPAY ==
--- NOTE | ~2024-08-25 | CT_ITS ---
CT Facial Bones Clinical Indication: Vision changes, right facial swelling and headache Technique: Contiguous axial scans were obtained through the facial bones followed by coronal and sagi ttal reconstructions. Dose reduction technique was used on this scan by utilizing automated exposure control and iterative reconstruction technique. The dose-length product (DLP) was 605.33 mGy-cm. Findings: No fractures are identified. The visualized paranasal sinuses are clear. Intraorbital soft tissues appear normal. Impression: No significant abnormality seen. Reviewed, dictated and finalized at location M. Impression: No significant abnormality seen.
--- NOTE | ~2024-08-25 | CT_ITS ---
Non-contrast Head CT History: Vision changes, right facial swelling and headache Technique: Axial non-contrast imaging of the brain was performed. Dose reduction technique was used on this scan by utilizing automated exposure control and iterative reconstruction technique. The dose -length product (DLP) was 605.33 mGy-cm. Findings: There is no evidence of intracranial hemorrhage, mass lesion, or acute infarct. Brain par enchyma appears normal. The ventricles and subarachnoid spaces are normal in size. The calvarium ap pears normal. The visualized paranasal sinuses and mastoid air cells are clear. Impression: No significant abnormality seen. Reviewed, dictated and finalized at location . Impression: No significant abnormality seen.
--- OUTSIDE RECORDS SUMMARY | 2024-08-25 13:29 | XMS_ITS | Encounter Summary ---
Author Organization [facility] Address [facility] [place] [address] Care Team Providers Care Typewriter Assembler Name Role Phone None, Provider Primary Care Provider Unavaila ble Encounter Details Date Type Department Care Team (Late Contact Info) Description 08/23/2024 Orders Only [facility] [address] [place] [address] Jennifer Swenson, ADVISORY APPLICATION DEVELOPER [address] [address] Social History Tobacco Use Types Packs/Day Years Used Date Smoking Tobacco: Never Smokeless Tobacco: Never Alcohol Use Standard Drinks/Week Comments Not Currently 0 (1 standard drink = 0.6 oz pur e alcohol) Comments No Sex and Gender Information Value Date Recorded Sex Assigned at Female 05/13/2024 8:33 AM TREASURY MANAGER Legal Sex Female 6:16 PM CDT Gender Identity Not on file Sexual Orientation Not on file documented as of this encounter Plan of Treatment Upcoming Encounters Date Type Department Care Team (Late Contact Info) Description 08/27/2024 11:00 AM CDT Appointment [facility] [address] [place] [address] Samm Farah, ENVIRONMENTAL PROPERTY ASSESSOR [address] [place], [place] [id number] Carmella King, CARE PROFESSIONAL [address] [place] [id number] documented as of this encounter Results * SED RATE, ERYTHROCYTE (ESR) (08/23/2024 12:03 PM CDT) ESR 14 0 - 20 MM/HR 08/23/2024 12:29 PM CDT [facility] 08/23/2024 12:0 3 PM CDT Jennifer Swenson ADVISORY APPLICATION DEVELOPER LABORATORY Final Re sult Performing Organization Address City/[facility]/ZIP Co de Phone Number [facility] [address] [place] [address], [place] [phone] * RHEUMATOID FACTOR, QUANT (08/23/2024 12:03 PM CDT) Pathologist [facility] RHEUMATOID FACTOR <10 <15 IU/ML 08/24/2024 3:24 PM CDT [facility] 08/23/2024 12:0 3 PM CDT Jennifer Swenson ADVISORY APPLICATION DEVELOPER LABORATORY Final Re sult [facility] [address] [place] [address], [place] [phone] * (ABNORMAL) CBC W/DIFF AUTOMATED (08/23/2024 12:03 PM CDT) WBC 9.52 4.00 - 10.80 x10'3/uL 08/23/2024 12:20 PM CDT [facility] RBC 4.23 4.10 - 5.40 x10'6/uL 08/23/2024 12:20 PM CDT [facility] HGB 13.5 12.0 - 16.0 G/DL 08/23/2024 12:20 PM CDT [facility] HCT 38.7 36.0 - 47.0 % 08/23/2024 12:20 PM CDT [facility] MCV 91.5 78.0 - 100.0 FL 08/23/2024 12:20 PM CDT [facility] MCH 31.9(H) 27.0 - 31.0 PG 08/23/2024 12:20 PM CDT [facility] MCHC 34.9 33.0 - 36.0 G/DL 08/23/2024 12:20 PM CDT [facility] RDW 11.9 11.5 - 14.5 % 08/23/2024 12:20 PM CDT [facility] PLT 336 150 - 350 x10'3/uL 08/23/2024 12:20 PM CDT [facility] MPV 9.7 7.4 - 10.4 FL 08/23/2024 12:20 PM CDT [facility] CBC COMMENT NORMAL REFERENCE RANGE NOT ESTABLISHED FOR THE PROPORTIONAL LEUKOCYTE DIFFERENTIAL. 08/23/2024 12:20 PM CDT [facility] NEUTROPHILS % 68.4 % 08/23/2024 12:20 PM CDT [facility] LYMPHOCYTES % 24.8 % 08/23/2024 12:20 PM CDT [facility] MONOCYTES % 4.5 % 08/23/2024 12:20 PM CDT [facility] EOSINOPHILS % 1.7 % 08/23/2024 12:20 PM CDT [facility] BASOPHILS % 0.2 % 08/23/2024 12:20 PM CDT [facility] IMMATURE GRANS % 0.4 % 08/24/19 12:20 PM CDT [facility] NRBC % 0.0 % 08/23/2024 12:20 PM CDT [facility] ABS. NEUTROPHILS 6.51 1.60 - 8.30 x10'3/uL 08/23/2024 12:20 PM CDT [facility] ABS. LYMPHOCYTES 2.36 0.80 - 4.70 x10'3/uL 08/23/2024 12:20 PM CDT [facility] ABS. MONOCYTES 0.43 0.00 - 1.50 x10'3/uL 08/23/2024 12:20 PM CDT [facility] ABS. EOSINOPHILS 0.16 0.00 - 0.40 x10'3/uL 08/23/2024 12:20 PM CDT [facility] ABS. BASOPHILS 0.02 0.00 - 0.20 x10'3/uL 08/23/2024 12:20 PM CDT [facility] ABS. IMMATURE GRANULOCYTES 0.04(H) 0.00 - 0.03 x10'3/uL 08/23/2024 12:20 PM CDT [facility] ABS. NUCLEATED RBC'S 0.00 0.00 - 0.01 x10'3/uL 08/23/2024 12:20 PM CDT [facility] 08/23/2024 12:0 3 PM CDT us Jennifer Swenson APRN LABORATORY Final Re sult Performing Organization Address [facility] de Phone Number [facility] [place] [address], * ANTINUCLEAR ANTIBODY [place] RFX (08/23/2024 12:03 PM CDT) KHOA 0.3 08/24/2024 11:28 AM CDT [facility] Comment: NEGATIVE: <0.7 RATIO KHOA PROFILE AND TITER NOT PERFORMED THE KHOA SCREEN TESTS FOR THE FOLLOWING ANTIBODIES BY EIA: SSA1 (RO), SSB1 (LA), RECINOS, SCL70, JO1, CENTROMERE, CUSTOMER EQUIPMENT ENGINEER HISTONE MUST BE ORDERED SEPARATELY DNA (DS) ANTIBODY <0.6 IU/ML 025 11:28 AM CDT [facility] Comment: NEGATIVE: <10 IU/mL EQUIVOCAL: 10 to 15 IU/mL POSITIVE: >15 IU/mL THIS QUANTITATIVE ASSAY IS CALIBRATED TO THE [employer]'S WO/80 STANDARD. THE LEVEL OF dsDNA AUTOANTIBODY GERERALLY CORRELATES WITH THE LEVEL OF DISEASE ACTIVITY IN SYSTEMIC LUPUS ERYTHMATOSUS 08/23/2024 12:0 3 PM CDT us Jennifer Swenson APRN LABORATORY Final Re sult Performing Organization Address City/[facility]/ZIP Co de Phone Number [facility] [address] [place] [address], [phone] documented in this encounter Visit Diagnoses Diagnosis Unspecified subjective visual disturbances- Primary Anesthesia of skin Disturbance of skin sensation Localized swelling, mass and lump, head documented in this encounter Care Teams Typewriter Assembler Relationship Specialty Start Date End Date None, Provider, PCP - General 03/20/20 documented as of this encounter
--- OUTSIDE RECORDS SUMMARY | 2024-08-25 13:29 | XMS_ITS | Encounter Summary ---
Author Organization [facility] Address [address] [place] [id number] Care Team Providers Care Vending Technician Name Role Phone None, Provider Primary Care Provider Patricia conroy Encounter Details Date Type Department Care Team (Latest Contact Info) Description 08/23/2024 11:45 AM CDT - 08/23/2024 11:59 PM CDT Hospital Encounter [facility] [address] [facility] [place] [address] Jennifer Swenson, VALVE PIPE IRRIGATOR [address] [address] Arrived Discharge Disposition: Home or Self Care (Routine Discharge) Social History Tobacco Use Types Packs/Day Years Used Date Smoking Tobacco: Never Smokeless Tobacco: Never Alcohol Use Standard Drinks/Week Comments Not Currently 0 (1 standard drink = 0.6 oz pur e alcohol) Comments No Sex and Gender Information Value Date Recorded Sex Assigned at Female 05/13/2024 8:33 AM SOAP PRESS FEEDER Legal Sex Female 6:16 PM CDT Gender Identity Not on file Sexual Orientation Not on file documented as of this encounter Medications at Time of Discharge albuterol sulfate HFA 108 (90 Base) MCG/ACT inhalerIndications:A cute bronchitis Inhale 2 puffs into the lungs every 4 (four) hours as needed for Wheezing. 1 Inhaler 03/20/2020 ondansetron (ZOFRAN-ODT) 4 MG disintegrating tablet Take 1 tablet (4 mg total) by mouth every 8 (eight) hours as needed for Nausea. 12 tablet 06/27/2023 traMADol (ULTRAM) 50 MG tabletIndications:Ac star Pain < 7 Day Supply Indications: Acute Pain < 7 Day Supply 1-2 tabs po q6 hours prn pain 16 tablet 06/27/2023 documented as of this encounter Plan of Treatment Upcoming Encounters Date Type Department Care Team (Late st Contact Info) Description 08/27/2024 11:00 AM CDT Appointment [facility] [address] [facility] [place] [address] Samm Farah, EXERCISE SPECIALIST [address] [place] [address] Carmella King, ANIMAL RESEARCHER [address] [place] [address] documented as of this encounter Procedures Procedure Name Priority Date/Time Associated Diagnosis Comments ANTINUCLEAR ANTIBODY WI RFX Routine 08/23/2024 12:03 PM CDT Unspecified subjective visual disturbances Anesthesia of skin Localized swelling, mass and lump, head RHEUMATOID FACTOR, QUANT Routine 08/23/2024 12:03 PM CDT Unspecified subjective visual disturbances Anesthesia of skin Localized swelling, mass and lump, head SED RATE, ERYTHROCYTE (ESR) Routine 08/23/2024 12:03 PM CDT Unspecified subjective visual disturbances Anesthesia of skin Localized swelling, mass and lump, head CBC W/DIFF AUTOMATED Routine 08/23/2024 12:03 PM CDT Unspecified subjective visual disturbances Anesthesia of skin Localized swelling, mass and lump, head documented in this encounter Results * SED RATE, ERYTHROCYTE (ESR) (08/23/2024 12:03 PM CDT) ESR 14 0 - 20 MM/HR 08/23/2024 12:29 PM CDT [facility] 08/23/2024 12:0 3 PM CDT Jennifer Swenson VALVE PIPE IRRIGATOR LABORATORY Final Re sult [facility] [address] [place] [address], [place] [phone] * RHEUMATOID FACTOR, QUANT (08/23/2024 12:03 PM CDT) Pathologist [facility] RHEUMATOID FACTOR <10 <15 IU/ML 08/24/2024 3:24 PM CDT [facility] 08/23/2024 12:0 3 PM CDT Jennifer Swenson VALVE PIPE IRRIGATOR LABORATORY Final Re sult Performing Organization Address City/[facility]/ZIP Co de Phone Number [facility] [address] [place] [address], [place] [phone] * (ABNORMAL) CBC W/DIFF AUTOMATED (08/23/2024 12:03 PM CDT) Pathologist [facility] WBC 9.52 4.00 - 10.80 x10'3/uL 08/23/2024 12:20 PM CDT [facility] RBC 4.23 4.10 - 5.40 x10'6/uL 08/23/2024 12:20 PM CDT [facility] HGB 13.5 12.0 - 16.0 G/DL 08/23/2024 12:20 PM CDT [facility] HCT 38.7 36.0 - 47.0 % 08/23/2024 12:20 PM CDT [facility] MCV 91.5 78.0 - 100.0 FL 08/23/2024 12:20 PM CDT [facility] MCH 31.9(H) 27.0 - 31.0 PG 08/23/2024 12:20 PM CDT [facility] MCHC 34.9 33.0 - 36.0 G/DL 08/23/2024 12:20 PM CDT [facility] RDW 11.9 11.5 - 14.5 % 08/23/2024 12:20 PM CDT [facility] PLT 336 150 - 350 x10'3/uL 08/23/2024 12:20 PM CDT [facility] MPV 9.7 7.4 - 10.4 FL 08/23/2024 12:20 PM CDT [facility] CBC COMMENT NORMAL REFERENCE RANGE NOT ESTABLISHED FOR THE PROPORTIONAL LEUKOCYTE DIFFERENTIAL. 08/23/2024 12:20 PM CDT [facility] NEUTROPHILS % 68.4 % 08/23/2024 12:20 PM CDT [facility] LYMPHOCYTES % 24.8 % 08/23/2024 12:20 PM CDT [facility] MONOCYTES % 4.5 % 08/23/2024 12:20 PM CDT [facility] EOSINOPHILS % 1.7 % 08/23/2024 12:20 PM CDT [facility] BASOPHILS % 0.2 % 08/23/2024 12:20 PM CDT [facility] IMMATURE GRANS % 0.4 % 08/24/19 12:20 PM CDT [facility] NRBC % 0.0 % 08/23/2024 12:20 PM CDT [facility] ABS. NEUTROPHILS 6.51 1.60 - 8.30 x10'3/uL 08/23/2024 12:20 PM CDT [facility] ABS. LYMPHOCYTES 2.36 0.80 - 4.70 x10'3/uL 08/23/2024 12:20 PM CDT [facility] ABS. MONOCYTES 0.43 0.00 - 1.50 x10'3/uL 08/23/2024 12:20 PM CDT [facility] ABS. EOSINOPHILS 0.16 0.00 - 0.40 x10'3/uL 08/23/2024 12:20 PM CDT [facility] ABS. BASOPHILS 0.02 0.00 - 0.20 x10'3/uL 08/23/2024 12:20 PM CDT [facility] ABS. IMMATURE GRANULOCYTES 0.04(H) 0.00 - 0.03 x10'3/uL 08/23/2024 12:20 PM CDT [facility] ABS. NUCLEATED RBC'S 0.00 0.00 - 0.01 x10'3/uL 08/23/2024 12:20 PM CDT [facility] 08/23/2024 12:0 3 PM CDT Jennifer Swenson VALVE PIPE IRRIGATOR LABORATORY Final Re sult Performing Organization Address City/[facility]/ZIP Co de Phone Number [facility] [address] [place] [address], [place] [phone] * ANTINUCLEAR ANTIBODY WI RFX (08/23/2024 12:03 PM CDT) KHOA 0.3 08/24/2024 11:28 AM CDT [facility] Comment: NEGATIVE: <0.7 RATIO KHOA PROFILE AND TITER NOT PERFORMED THE KHOA SCREEN TESTS FOR THE FOLLOWING ANTIBODIES BY EIA: SSA1 (RO), SSB1 (LA), RECINOS, SCL70, JO1, CENTROMERE, CHANGE MANAGEMENT COORDINATOR HISTONE MUST BE ORDERED SEPARATELY DNA (DS) ANTIBODY <0.6 IU/ML 025 11:28 AM CDT [facility] Comment: NEGATIVE: <10 IU/mL EQUIVOCAL: 10 to 15 IU/mL POSITIVE: >15 IU/mL THIS QUANTITATIVE ASSAY IS CALIBRATED TO THE [employer]'S WO/80 STANDARD. THE LEVEL OF dsDNA AUTOANTIBODY GERERALLY CORRELATES WITH THE LEVEL OF DISEASE ACTIVITY IN SYSTEMIC LUPUS ERYTHMATOSUS 08/23/2024 12:0 3 PM CDT Jennifer Swenson VALVE PIPE IRRIGATOR LABORATORY Final Re sult Performing Organization Address City/[facility]/ZIP Co de Phone Number [facility] [address] [place] [address], [place] [phone] documented in this encounter Visit Diagnoses Diagnosis Unspecified subjective visual disturbances Anesthesia of skin Disturbance of skin sensation Localized swelling, mass and lump, head documented in this encounter Care Teams Vending Technician Relationship Specialty Start Date End Date None, Provider, PCP - General 03/20/20 documented as of this encounter
--- OUTSIDE RECORDS SUMMARY | 2024-08-25 13:30 | XMS_ITS | Clinical Summary ---
Author Organization [facility] Address [address] [place] [address] Care Team Providers Care Application Support Manager Name Role Phone None, Provider MD Primary [...] needed for Nausea. 12 tablet 4 Active Active Problems Problem Noted Date Diagnosed Date Cervicalgia 08/18/2024 Encounters Date Type Department Care Team Description 08/23/2024 11:45 AM CDT - 08/23/2024 11:59 PM CDT Hospital Encounter [facility] [place] [address] Jennifer Swenson, [employer]AC[employer] Arrived Discharge Disposition: Home or Self Care (Routine Discharge) 08/23/[address] [facility] [place] [address] Jennifer Swenson, [employer]ACER 08/23/2024 Travel 08/18/2024 Travel 08/09/2024 12:54 PM CDT - 08/09/2024 11:59 PM CDT Hospital Encounter [facility] [place] [address] Jennifer Swenson, [employer]ACER Discharge Disposition: Home or Self Care (Routine Discharge) 08/09/2024 Orders Only [facility] [place] [address] Jennifer Swenson, [employer]ACER 08/09/2024 Travel from Last 3 Months Social History Tobacco Use Types Packs/Day Years Used Date Smoking Tobacco: Never Smokeless Tobacco: Never Tobacco Cessation:Counseling Given: Not Answered Alcohol Use Standard Drinks/Week Comments Not Currently 0 (1 standard drink = 0.6 oz pur e alcohol) Comments No Sex and Gender Information Value Date Recorded Sex Assigned at Female 05/13/2024 8:33 AM FINANCIAL SERVICES DIRECTOR Legal Sex Female 6:16 PM CDT Gender Identity Not on file Sexual Orientation Not on file Last Filed Vital Signs Vital Sign Reading Time Taken Comments Blood Pressure 122/105 06/27/2023 1:00 PM FINANCIAL SERVICES DIRECTOR Pulse 88 06/27/2023 10:18 AM FINANCIAL SERVICES DIRECTOR Temperature 36 C (96.8 F) 06/27/2023 10:18 AM FINANCIAL SERVICES DIRECTOR Respiratory Rate 16 06/27/2023 10:18 AM FINANCIAL SERVICES DIRECTOR Oxygen Saturation 98% 06/27/2023 11:30 AM FINANCIAL SERVICES DIRECTOR Inhaled Oxygen Concentration - - Weight 104.3 kg (230 lb) 05/21/2024 9:00 AM FINANCIAL SERVICES DIRECTOR Height 162.6 cm (5' 4 ) 06/27/2023 10:18 AM FINANCIAL SERVICES DIRECTOR Body Mass Index 39.48 06/27/2023 10:18 AM FINANCIAL SERVICES DIRECTOR Plan of Treatment Upcoming Encounters Date Type Department Care Team (Late st Contact Info) Description 08/27/2024 11:00 AM CDT Appointment [facility] [place] [address] Samm Farah, ENDOSCOPY RN [address] [place] [address] Carmella King, [address] [address] Health Maintenance Due Date Last Done Comments [...] Procedure Name Priority Date/Time Associated Diagnosis Comments SED RATE, ERYTHROCYTE (ESR) Routine 08/23/2024 12:03 [...] skin Localized swelling, mass and lump, head ANTINUCLEAR ANTIBODY WI RFX Routine 08/23/2024 12:03 PM CDT Unspecified subjective visual disturbances Anesthesia of skin Localized swelling, mass and lump, head THYROXINE, FREE (FT4) Routine 08/09/2024 1:10 PM [...] 1:10 PM CDT Acute pharyngitis Other dysphagia from Last 3 Months Results * ANTINUCLEAR ANTIBODY WI RFX (08/23/2024 12:03 PM CDT) KHOA 0.3 08/24/2024 11:28 AM CDT [facility] Comment: NEGATIVE: <0.7 RATIO KHOA PROFILE AND TITER NOT PERFORMED THE KHOA SCREEN TESTS FOR THE FOLLOWING ANTIBODIES BY EIA: SSA1 (RO), SSB1 (LA), RECINOS, SCL70, JO1, CENTROMERE, PHYTOCHEMISTRY PROFESSOR HISTONE MUST BE ORDERED SEPARATELY DNA (DS) ANTIBODY <0.6 IU/ML 025 11:28 AM CDT [facility] Comment: NEGATIVE: <10 IU/mL EQUIVOCAL: 10 to 15 IU/mL POSITIVE: >15 IU/mL THIS QUANTITATIVE ASSAY IS CALIBRATED TO THE [employer]'S WO/80 STANDARD. THE LEVEL OF dsDNA AUTOANTIBODY GERERALLY CORRELATES WITH THE LEVEL OF DISEASE ACTIVITY IN SYSTEMIC LUPUS ERYTHMATOSUS 08/23/2024 12:0 3 PM CDT us Jennifer Swenson APRN LABORATORY Final Re sult [facility] [address] [place] [address], [id number] * RHEUMATOID FACTOR, QUANT (08/23/2024 12:03 PM CDT) RHEUMATOID FACTOR <10 <15 IU/ML 08/24/2024 3:24 PM CDT [facility] 08/23/2024 12:0 3 PM CDT Jennifer Swenson [employer] LABORATORY Final Re sult [facility] [address] [place] [address], [place] [phone] * SED RATE, ERYTHROCYTE (ESR) (08/23/2024 12:03 PM CDT) ESR 14 0 - 20 MM/HR 08/23/2024 12:29 PM CDT [facility] 08/23/2024 12:0 3 PM CDT Jennifer Swenson [facility] Final Re sult Performing Organization Address City/[facility]/ZIP Co de Phone Number [facility] [address] [place] [address], [place] [phone] * (ABNORMAL) CBC W/DIFF AUTOMATED (08/23/2024 12:03 PM CDT) Only the most recent of2 resultswithin the time period is included. WBC 9.52 4.00 - 10.80 x10'3/uL 08/23/2024 12:20 PM CDT [facility] RBC 4.23 4.10 - 5.40 x10'6/uL 08/23/2024 12:20 PM CDT [facility] HGB 13.5 12.0 - 16.0 G/DL 08/23/2024 12:20 PM CDT [facility] HCT 38.7 36.0 - 47.0 % 08/23/2024 12:20 PM CDT [facility] MCV 91.5 78.0 - 100.0 FL 08/23/2024 12:20 PM CDT [facility] MCH 31.9(H) 27.0 - 31.0 PG 08/23/2024 12:20 PM CDT [facility] MCHC 34.9 33.0 - 36.0 G/DL 08/23/2024 12:20 PM CDT [facility] RDW 11.9 11.5 - 14.5 % 08/23/2024 12:20 PM CDT [facility] PLT 336 150 - 350 x10'3/uL 08/23/2024 12:20 PM CDT [facility] MPV 9.7 7.4 - 10.4 FL 08/23/2024 12:20 PM CDT [facility] CBC COMMENT NORMAL REFERENCE RANGE NOT ESTABLISHED FOR THE PROPORTIONAL LEUKOCYTE DIFFERENTIAL. 08/23/2024 12:20 PM CDT [facility] NEUTROPHILS % 68.4 % 08/23/2024 12:20 PM CDT [facility] LYMPHOCYTES % 24.8 % 08/23/2024 12:20 PM CDT [facility] MONOCYTES % 4.5 % 08/23/2024 12:20 PM CDT [facility] EOSINOPHILS % 1.7 % 08/23/2024 12:20 PM CDT [facility] BASOPHILS % 0.2 % 08/23/2024 12:20 PM CDT [facility] IMMATURE GRANS % 0.4 % 08/24/19 12:20 PM CDT [facility] NRBC % 0.0 % 08/23/2024 12:20 PM CDT [facility] ABS. NEUTROPHILS 6.51 1.60 - 8.30 x10'3/uL 08/23/2024 12:20 PM CDT [facility] ABS. LYMPHOCYTES 2.36 0.80 - 4.70 x10'3/uL 08/23/2024 12:20 PM CDT [facility] ABS. MONOCYTES 0.43 0.00 - 1.50 x10'3/uL 08/23/2024 12:20 PM CDT [facility] ABS. EOSINOPHILS 0.16 0.00 - 0.40 x10'3/uL 08/23/2024 12:20 PM CDT [facility] ABS. BASOPHILS 0.02 0.00 - 0.20 x10'3/uL 08/23/2024 12:20 PM CDT [facility] ABS. IMMATURE GRANULOCYTES 0.04(H) 0.00 - 0.03 x10'3/uL 08/23/2024 12:20 PM CDT [facility] ABS. NUCLEATED RBC'S 0.00 0.00 - 0.01 x10'3/uL 08/23/2024 12:20 PM CDT [facility] 08/23/2024 12:0 3 PM CDT Jennifer Swenson [employer] LABORATORY Final Re sult [facility] [address] [place] [address], * MISCELLANEOUS LAB TEST (08/09/2024 1:10 PM CDT) TEST NAME: NATALIE BISHOP VIRUS DNA QUANTITATIVE REAL TIME PCR [id number] 08/09/2024 1:12 PM CDT [facility] SPECIMEN TYPE PLASMA EDTA 08/09/2024 1:12 PM CDT [facility] TEST RESULT: Flexitest 1 08/11/2024 10:15 PM CDT [email or web address] DEVIKA SCHAFFER Comment: Flexitest 1 Natalie Bishop Virus DNA, QN Real Time PCR, Plasma EBV DNA, QN PCR Not Detected IU/mL EBV DNA, QN PCR Not Detected Log IU/mL Reference Range: Not Detected For additional information, please refer to [email or web address]/[email or web address] (This link is being provided for informational/ educational purposes only.) Test Performed by Noah Onofre [email or web address] Juliana Shultzosiel Trujillo, [address] [place] [address] Dario Leon M.D., Ph.D., Director of Laboratories , CLIA [id number] 08/09/2024 1:10 PM CDT us Jennifer Swenson [employer] LABORATORY Final Re sult [facility] [address] [place], [place] , [place] [phone] [facility] [address] [place] [address], [place] [phone] * (ABNORMAL) COMPREHENSIVE METABOLIC PANEL (08/09/2024 1:10 PM CDT) Pathologist [facility] SODIUM S/P/B 137 136 - 145 MMOL/L 08/09/2024 1:42 PM CDT [facility] POTASSIUM S/P/B 3.8 3.5 - 5.1 MMOL/L 08/09/2024 1:42 PM CDT [facility] CHLORIDE S/P/B 101 98 - 107 MMOL/L 08/09/2024 1:42 PM CDT [facility] CO2 31.8 21.0 - 32.0 MMOL/L 08/09/2024 1:42 PM CDT [facility] GLUCOSE 86 70 - 99 MG/DL 08/09/2024 1:42 PM CDT [facility] Comment: FASTING GLUCOSE 100 TO 125 MG/DL IS CONSISTENT WITH IMPAIRED FASTING GLUCOSE. FASTING GLUCOSE >125 MG/DL IS CONSISTENT WITH DIABETES. RANDOM GLUCOSE >200 MG/DL WITH HYPERGLYCEMIC SYMPTOMS IS CONSISTENT WITH DIABETES. PER ADA GUIDELINES BUN 6 6 - 24 MG/DL 08/09/2024 1:42 PM CDT [facility] CREATININE S/P/B 0.78 0.55 - 1.02 MG/DL 08/09/2024 1:42 PM CDT [facility] CALCIUM S/P/B 9.2 8.4 - 10.5 MG/DL 08/09/2024 1:42 PM CDT [facility] BILIRUBIN TOTAL S/P/B 0.4 0.2 - 1.0 MG/DL 08/09/2024 1:42 PM CDT [facility] Comment: THIS ASSAY IS NOT RECOMMENDED FOR PATIENTS UNDERGOING TREATMENT WITH ELTROMBOPAG DUE TO THE POTENTIAL FOR FALSELY ELEVATED RESULTS. ALKALINE PHOSPHATASE S/P/B 62 37 - 98 U/L 08/09/2024 1:42 PM CDT [facility] AST 17 15 - 37 U/L 08/09/2024 1:42 PM CDT [facility] ALT 18 14 - 59 U/L 08/09/2024 1:42 PM CDT [facility] TOTAL PROTEIN S/P/B 7.4 6.4 - 8.2 G/DL 08/09/2024 1:42 PM CDT [facility] ALBUMIN S/P/B 3.7 3.4 - 5.0 G/DL 08/09/2024 1:42 PM CDT [facility] ANION GAP 4.2(L) 5.0 - 15.0 MMOL/L 08/09/2024 1:42 PM CDT [facility] OSMOLALITY (CALC) 281 MOSM/KG 025 1:42 PM CDT [facility] Comment:REFERENCE RANGE NOT ESTABLISHED GFR ESTIMATE >90 >89 ML/MIN/1. 73 M2 08/09/2024 1:42 PM CDT [facility] GFR NOTES GFR REFERENCE S: 08/09/2024 1:42 PM T [facility] Comment: THE ESTIMATED GFR IS [...] 08/09/2024 1:10 PM CDT us Jennifer Swenson [employer] LABORATORY Final Re sult Performing Organization Address [facility]/ZIP Co de Phone Number [facility] [address] [place] [id number], * HETEROPHILE ANTIBODIES,SCREEN (08/09/2024 1:10 PM CDT) MONO TEST NEGATIVE NEGATIVE 08/09/2024 2:51 PM CDT [facility] 08/09/2024 1:10 PM CDT us Jennifer Swenson [facility] Final Re sult Performing Organization Address [facility] Co de Phone Number [facility] [address] [place] [phone], * THYROXINE, FREE (FT4) (08/09/2024 1:10 PM CDT) FREE T4 0.91 0.76 - 1.46 NG/DL 08/09/2024 1:42 PM CDT [facility] 08/09/2024 1:10 PM CDT us Jennifer Swenson [facility] Final Re sult Performing Organization Address [facility] Co de Phone Number [facility] [place] [address], * THYROID STIM HORMONE TSH (08/09/2024 1:10 PM CDT) TSH 0.708 0.358 - 3.740 uIU/ML 08/09/2024 1:42 PM CDT [facility] Comment: ASSAY PERFORMED BY CHEMILUMINESCENT IMMUNOASSAY METHODOLOGY USING [employer]ENT. PATIENT RESULTS DETERMINED BY ASSAYS FROM DIFFERENT MANUFACTURERS AND/OR BY DIFFERENT METHODS MAY NOT BE COMPARABLE. 08/09/2024 1:10 PM CDT us Jennifer Swenson [facility] Final Re sult [facility] [address] [place] [address], from Last 3 Months Insurance MEDICAID Care Teams Application Support Manager Relationship Specialty Start Date End Date None, Provider, PCP - General 03/20/20
== END 2024-08-25 12:39 | disposition home or self-care (01) ==
LOC: CHSIMG 12:40
PROVIDERS: PCP Nurse Practitioner Family; Visit Provider Nurse Practitioner Family
DX: R22.0 Localized swelling, mass and lump, head (principal)
CPT/HCPCS: 70450; 70486

== ENCOUNTER 2024-10-07 02:33 | Day surgery (SDC) | payer OTHER, SELFPAY ==
[2024-09-27 09:27] VITALS: BMI 38.2
[2024-10-07 13:38] VITALS: BP 122/67; PULSE 65; RESP 16; TEMP 36.9; O2SAT 100
[2024-10-07 13:44] LABS: BEDSIDEPREGUCG Negative (Negative)
[2024-10-07] MEDS: SIMETHICONE ORAL SUSPENSION 20 MG/0.3 ML 30 ML BOTTLE 1.8 ML PO (13:59)
[2024-10-07] MEDS: LACTATED RINGERS 1,000 ML 150 ML IV CONT (14:08)
--- NOTE | 2024-10-07 14:21 | P.PNAN_ITS ---
Anes - Initial Pre Proc Eval Procedure: Operation Date: 10/07/24 14:00 Proposed Procedures p Esophagogastroduodenoscopy - Dayday Cline MD Date/Time: 10/07/24 14:21 Surgeon: Dayday Cline MD Pre Op Diagnosis: Abnormal findings on diagnostic imaging of other p Patient Data Age: 29 Gender: F Height: 1.63 m Weight: 99.4 kg Last Vital Signs Temp 98.5 F 10/07/24 13:38 Pulse 65 10/07/24 13:38 Resp 16 10/07/24 13:38 BP 122/67 10/07/24 13:38 Pulse Ox 100 10/07/24 13:38 O2 Del Method Room Air 10/07/24 13:38 Allergies Allergy/AdvReac Type Severity Reaction Status Date / Time Penicillins Allergy Unknown Hives / Verified 10/07/24 13:34 Red Face Home Medications ?Medication ?Instructions ?Recorded ?Confirmed ?Type dicyclomine 10 mg capsule 10 mg PO BID PRN abdominal pain 09/06/24 10/07/24 History hydroxyzine HCl 10 mg tablet 10 mg PO QID PRN anxiety 09/06/24 10/07/24 History ascorbic acid (vitamin C) 1,000 mg 1 g PO DAILY 09/27/24 10/07/24 History capsule ergocalciferol (vitamin D2) 1,250 50,000 unit PO DAILY 09/27/24 10/07/24 History mcg (50,000 unit) capsule vitamin E (dl, acetate) 180 mg 180 mg PO DAILY 09/27/24 10/07/24 History (400 unit) capsule Laboratory Tests 10/07/24 13:38 POC Urine HCG, Qual Negative (Negative) Patient hx anesthesia problems: none Family hx anesthesia problems: none Results Review: All pre-operative results and documents have been reviewed as part of the pre- operative evaluation. FOR[facility]LY [facility] Social History Social History (System 10/07/24 @ 13:32 by Felicitas Rivas) Smoking status: Never smoker Alcohol intake: never Substance use: never Substance use type: marijuana Other substance usage details: PRN edible Anes - Eval Final PreProcedure Day of Procedure 10/07/24 14:21 Patient weight: normal Heart: regular rate and rhythm Lungs: clear to auscultation Airway: Mallampati scale class II Neurological: alert and oriented Last oral intake: >/= 8 hours ASA classification: II Emergent: no Anesthetic plan: proceed Anesthesia type and monitoring: general GIVS and standard monitoring Results Review: All pre-operative results and documents have been reviewed as part of the pre- operative evaluation. Informed Consent: The patient's anesthetic plan and its attendant risks and benefits were discussed with the patient/family/POA. Questions were solicited and answers provided to the satisfaction of the patient/family/POA.
--- NOTE | 2024-10-07 15:09 | PM.IMHP ---
H&P: HPI History of Present Illness Date/Time: 10/07/24 15:09 Chief Complaint: Dysphagia Narrative: the patient has been having difficulty swallowing for the past 2 months, solid and liquids. Recently she underwent a modified barium swallow which shows some difficulty transferring the bolus from the mouth to the esophagus. However, she denies cough or near aspiration symptoms. Review of Systems Review of Systems: All systems reviewed & are unremarkable except as noted in HPI and below PMFSH Social History Social History (System 10/07/24 @ 13:32 by Felicitas Rivas) Smoking status: Never smoker Alcohol intake: never Substance use: never Substance use type: marijuana Other substance usage details: PRN edible Meds Home Medications and Allergies Home Medications ?Medication ?Instructions ?Recorded ?Confirmed ?Type dicyclomine 10 mg capsule 10 mg PO BID PRN abdominal pain 09/06/24 10/07/24 History hydroxyzine HCl 10 mg tablet 10 mg PO QID PRN anxiety 09/06/24 10/07/24 History ascorbic acid (vitamin C) 1,000 mg 1 g PO DAILY 09/27/24 10/07/24 History capsule ergocalciferol (vitamin D2) 1,250 50,000 unit PO DAILY 09/27/24 10/07/24 History mcg (50,000 unit) capsule vitamin E (dl, acetate) 180 mg 180 mg PO DAILY 09/27/24 10/07/24 History (400 unit) capsule Allergies Allergy/AdvReac Type Severity Reaction Status Date / Time Penicillins Allergy Unknown Hives / Verified 10/07/24 13:34 Red Face Vital Signs Vital Signs - 24 hr 10/07/24 13:38 Temperature 98.5 F Pulse Rate 65 Respiratory Rate 16 Blood Pressure 122/67 Pulse Oximetry 100 Oxygen Delivery Room Air Exam Const: General: cooperative and healthy appearing Resp: Effort & Inspection: normal respiratory effort and able to speak in complete sentences Auscultation: clear to auscultation bilaterally Cardio: Rate: regular rate Rhythm: regular rhythm GI: Inspection: normal to inspection GI Palp: No No hepatosplenomegaly present Auscultation: normal bowel sounds Rectal Exam: deferred Skin: General skin exam: normal color Psych: Appearance: grossly normal Mental Status: mental status grossly normal Assessment and Plan Assessment and plan (1) Dysphagia: Code(s): R13.10 - Dysphagia, unspecified Status: Acute Assessment and Plan: The patient is deemed a good candidate for the procedure. Consent signed. Will proceed.
--- NOTE | 2024-10-07 15:22 | S_PTH ---
PATIENT: Ewelina Hammond LOC: [facility]#:[id number] AGE/SX: 29/F ROOM: RE10/07/[address]: Dayday Cline MD : 1995 BED: DIS: 10/07/2024 SPEC #: [id number] RECD: 10/08/24 08:28 STATUS: SANDRA REQ #: [id number] TORSTEN: 10/07/24 15:[address]: Dayday Cline DEPT: [facility] Surgical RECD BY: Lolly Duran ENTERED: 10/08/24 08:28 SP TYPE: Surgical OTHR DR: Jennifer Swenson, BEHAVIORAL SCIENCES INSTRUCTOR Tissues: A - Esophageal Biopsy Procedures: Hematoxylin and Eosin Stain Gross and Microscopic Level 4
[2024-10-07 15:27] VITALS: BP 98/59; PULSE 74; RESP 16; O2SAT 94
[2024-10-07 15:37] VITALS: BP 104/63; PULSE 72; RESP 16; O2SAT 95
[2024-10-07 15:47] VITALS: BP 115/71; PULSE 66; RESP 18; O2SAT 98
== END 2024-10-07 15:57 | disposition home or self-care (01) ==
PROVIDERS: Anesthesiology; PCP Nurse Practitioner Family; Visit Provider Internal Medicine Gastroenterology
PROC: 0DJ08ZZ Inspection of Upper Intestinal Tract, Via Natural or Artificial Opening Endoscopic (ICD-10-PCS; CPT 43239; principal; 2024-10-07 14:00)
DX: K21.00 Gastro-esophageal reflux disease with esophagitis, without bleeding (principal); F12.90 Cannabis use, unspecified, uncomplicated
CPT/HCPCS: 43239; 88305; J2003; J2704; J7120

== ENCOUNTER 2024-10-11 11:00 | Outpatient (RCR) | payer OTHER, SELFPAY ==
--- NOTE | 2024-08-31 09:18 | OPREHPOC ---
Outpatient Therapy Plan of Care This is a Multidisciplinary Plan of Care that may contain components documented by all disciplines (PT, OT, and ST.) PT Problem 1 PT Problem #1 Knowledge Deficit PT Goal 1 Goal / Goal Update independent and compliant with HEp Target Visit 6 PT Problem 2 PT Problem #2 Pain PT Goal 1 Goal / Goal Update decrease pain at worst to 2/10 or less in the neck and R jaw Target Visit 12 PT Problem 3 PT Problem #3 Impaired Strength PT Goal 1 Goal / Goal Update 5/5 bilateral UE strength Target Visit 12 PT Problem 4 PT Problem #4 Impaired Range of Motion PT Goal 1 Goal / Goal Update 45 degrees or better active cervical flex and ext 35 degrees or better active bilat cervical side bending 75 degrees or better active bilat cervical rotation Target Visit 12 PT Problem 5 PT Problem #5 Impaired Functional Mobility PT Goal 1 Goal / Goal Update NDI to display 10% or less functional deficits patient to report no jaw popping or pain 5 out of 7 days in a week or better Target Visit 12
--- NOTE | 2024-08-31 09:18 | PTOPEVAL1 ---
Assessment and note entered by JT File, PT Evaluation Information Assessment Status Evaluation Diagnosis cervicalgia and TMJ ICD-10 Condition Codes (PT) Cervicalgia M54.2 Onset 08/04/24 Subjective Information patient reports she went to the MD due to difficulty swallowing and breathing. she reports she was told she was getting a referral for TMJ, but now has an order for TMJ and cervicalgia. she reports she has some moderate neck pain, but dismisses it most of the time due to pain in the jaw. she reports the R side jaw locks, clicks, and radiates up and down from jainism to jaw. she reports she has had some facial swelling as well just on the R side. she reports she does have trouble sleeping/staying asleep. she reports she does not feel she is getting enough neck support from her pillow. she reports she has symptoms all the time, and can make it click on command. she demetrio avoiding a lot of foods due to her symptoms. she reports she also can feel more pain when bad weather is coming in soon. she reports she does grind her teeth at night. in regards to the neck, she has pain, soreness, and tightness in the neck, especially the R side. she reports she has been having TMJ off and on for a few years, but the facial symptoms have been around for the past 6-8 weeks. Assessment PT Clinical Summary ms. luque is a pleasant 28 yo woman who presents to skilled PT services for evaluation and treatment of R jaw pain. she presents today with signs and symptoms consistent with R TMJ. she also displays cervical pain with limited rom and UE weakness. she will benefit from continued skilled PT to address her R TMJ and cervicalgia to improve her quality of life/return to her prior level functional activity performance. Plan of Care Interventions Electrical Stimulation,Hot Pack/Cold Pack,Manual Therapy,Neuro Re-education,Therapeutic Activities, Therapeutic Exercise,Other Other Interventions dry needling PT Services Indicated Yes Treatment Frequency and 2x weekly for 12 visits Duration These treatments will address the objective and functional deficits as defined above. The patient will be advanced safely and appropriately in order for the patient to progress towards his/her prior level of function. Additional exercises will be introduced and as well as a comprehensive home exercise program upon discharge, if needed, ?to ensure carryover of functional gains achieved in the clinic. This treatment plan has been reviewed and agreement upon by the patient.
--- NOTE | 2024-09-13 18:04 | BUSTOPEVAL1 ---
Assessment and note entered by Leeanna Miller, [employer]CH RE[employer]ILDER Evaluation Information Assessment Status Evaluation Diagnosis Dysphagia R13.10 ICD-10 Condition Codes (ST) Dysphagia, unspecified R13.1 Subjective Information Patient was referred for a skilled ST evaluation after being seen through ENT and completion of a modified barium swallow study indicating deficits in lingual base retraction and laryngeal elevation . Patient reported that she has had difficulty swallowing for the past year but has progressed in the past few months. She has a history of pain/ tingling in her hands and feet, some vision difficulties at times and balance problems. She had an episode of breathing problems resulting in the need for a rescue inhaler and steroids. She recently has been eliminating foods from her diet in including primarily dairy and gluten. She has noticed a slight improved in swallowing with omission of foods. Patient was seen through ENT with scope completed and adenoids and tonsils were not currently impacting swallowing function. A modified barium swallow study was completed 08-27-24 with deficits noted in lingual base retraction and laryngeal elevation. Patient often required excessive mastication and piecemeal deglutition with all consistencies trialed. Patient recently had an MRI and CT completed to rule out MS, lupus and other potential causes for the swallowing deficits. She was started on acid reflux medication one month ago but reports that she does not often experience reflux symptoms. She also reported that she has some difficulty with her speech with fluency problems occasionally. She reports to have good and bad days where her swallowing is better or worse. Reported Pain Level Pain Score 0: Self Report Pain Score 2,3: Self Report Pain Score 3,3: Self Report Pain Score 4,4: Self Report Pain Score 4,4: Self Report Assessment ST Clinical Summary Patient was referred for a skilled ST evaluation due to ongoing swallowing difficulties over the past year. The patient has recently had an MRI and CT due to increased difficulty with vision, balance, tingling in hands and feet along with swallowing difficulties. Modified barium swallow study 08-27-24 was performed with results below: Indicating decreased lingual base retraction, limited laryngeal elevation (incomplete minimal superior movement of thyroid cartilage with minimal approximation of arytenoids to epiglottic petiole), decreased mastication skills, delayed initiation of swallow to vallecula and pyriform sinuses, pharyngeal stripping wave was absent, pharyngeal contraction produced bilateral bulging, air between retracted tongue base and posterior pharyngeal wall, and esophageal retention with incidence of retrograde bolus flow through pharyngoesophageal segment. Recommendation was given for ENT to scope pharynx, GI to evaluate esophageal function and speech therapy to address oropharyngeal dysphagia. Oral mechanism exam was completed with decreased coordination/ROM of tongue, delayed initiation of swallow and decreased laryngeal elevation upon palpation noted. Patient was seen with trials of cracker and ice water via straw upright at a table . Patient presented with facial grimace when attempting to swallow cracker and required multiple swallows to clear single bolus. Patient presented with piecemeal deglutition with all consistencies trialed. A chin tuck was trialed with solid bolus with an increase in difficulty noted resulting in fearfulness and increased effortful swallow required to clear bolus. Patient presented with frequent throat clearing with and without po intake. MASA was given with a score of 175 indicating mild dysphagia at this time. Recommendation for skilled ST treatment to target dysphagia R13.10 to improve overall oropharyngeal function for tolerance of least restrictive diet with least amount of difficulty. Recommendation for skilled ST 1x/week for 10 visits. Plan of Care Interventions Treatment of Swallowing Dysfunction Treatment Frequency and 1x/week for 10 visits Duration These treatments will address the objective and functional deficits as defined above. The patient will be advanced safely and appropriately in order for the patient to progress towards his/her prior level of function. Additional exercises will be introduced and as well as a comprehensive home exercise program upon discharge, if needed, ?to ensure carryover of functional gains achieved in the clinic. This treatment plan has been reviewed and agreement upon by the patient.
--- NOTE | 2024-09-13 18:04 | OPREHPOC ---
Outpatient Therapy Plan of Care This is a Multidisciplinary Plan of Care that may contain components documented by all disciplines (PT, OT, and ST.) PT Problem 1 PT Problem #1 Knowledge Deficit PT Goal 1 Goal / Goal Update independent and compliant with HEp Target Visit 6 PT Problem 2 PT Problem #2 Pain PT Goal 1 Goal / Goal Update decrease pain at worst to 2/10 or less in the neck and R jaw Target Visit 12 PT Problem 3 PT Problem #3 Impaired Strength PT Goal 1 Goal / Goal Update 5/5 bilateral UE strength Target Visit 12 PT Problem 4 PT Problem #4 Impaired Range of Motion PT Goal 1 Goal / Goal Update 45 degrees or better active cervical flex and ext 35 degrees or better active bilat cervical side bending 75 degrees or better active bilat cervical rotation Target Visit 12 PT Problem 5 PT Problem #5 Impaired Functional Mobility PT Goal 1 Goal / Goal Update NDI to display 10% or less functional deficits patient to report no jaw popping or pain 5 out of 7 days in a week or better Target Visit [address] Problem #[address] Goal 1 Goal / Goal Update 1. Patient will participate in home programming to improve carryover/generalization of skills to home environment. Target Visit [address] Problem #[address] Goal 1 Goal / Goal Update 1. Patient will utilize trained compensatory techniques to improve safety for tolerance of least restrictive diet without signs or symptoms of aspiration with minimal cues. Target Visit [address] Problem #[address] Goal 1 Goal / Goal Update 1. Patient will perform laryngeal elevation/ excursion exercises (falsetto, pitch glides) 10 reps for 3 sets with minimal cues. 2. Patient will perform stephanie 10 reps for 2 sets with minimal cues to improve movement of the pharynx. 3. Patient will perform chin tuck against resistance 10 reps for 3 sets with minimal cues. 4. Patient will perform lingual base strengthening exercises 10 reps for 3 sets with minimal cues. Target Visit 10
--- NOTE | 2024-10-14 16:58 | OPREHPOC ---
Outpatient Therapy Plan of Care This is a Multidisciplinary Plan of Care that may contain components documented by all disciplines (PT, OT, and ST.) PT Problem 1 PT Problem #1 Knowledge Deficit PT Goal 1 Goal / Goal Update independent and compliant with HEp Target Visit 6 Progress Met PT Problem 2 PT Problem #2 Pain PT Goal 1 Goal / Goal Update decrease pain at worst to 2/10 or less in the neck and R jaw Target Visit 12 Progress Partially Met PT Problem 3 PT Problem #3 Impaired Strength PT Goal 1 Goal / Goal Update 5/5 bilateral UE strength Target Visit 12 Progress Met PT Problem 4 PT Problem #4 Impaired Range of Motion PT Goal 1 Goal / Goal Update 45 degrees or better active cervical flex and ext -met 35 degrees or better active bilat cervical side bending -partially met 75 degrees or better active bilat cervical rotation -partially met Target Visit 12 Progress Partially Met PT Problem 5 PT Problem #5 Impaired Functional Mobility PT Goal 1 Goal / Goal Update NDI to display 10% or less functional deficits - not met patient to report no jaw popping or pain 5 out of 7 days in a week or better -met Target Visit [address] Problem 1 ST Problem #[address] Goal 1 Goal / Goal Update 1. Patient will participate in home programming to improve carryover/generalization of skills to home environment. Target Visit [address] Problem #[address] Goal 1 Goal / Goal Update 1. Patient will utilize trained compensatory techniques to improve safety for tolerance of least restrictive diet without signs or symptoms of aspiration with minimal cues. Target Visit [address] Problem #[address] Goal 1 Goal / Goal Update 1. Patient will perform laryngeal elevation/ excursion exercises (falsetto, pitch glides) 10 reps for 3 sets with minimal cues. 2. Patient will perform stephanie 10 reps for 2 sets with minimal cues to improve movement of the pharynx. 3. Patient will perform chin tuck against resistance 10 reps for 3 sets with minimal cues. 4. Patient will perform lingual base strengthening exercises 10 reps for 3 sets with minimal cues. Target Visit 10
--- NOTE | 2024-10-14 16:58 | PTOPDC ---
Assessment and note entered by Anuja Rodriguez, PT Evaluation Information Assessment Status Evaluation Diagnosis cervicalgia and TMJ ICD-10 Condition Codes (PT) Cervicalgia M54.2 Onset 08/04/24 Subjective Information Patient reports she is doing better since initiating PT. She has less clicking and better alignment in the jaw and has not had pain in her jaw for the last 2 weeks. She notes her neck is less painful as well and notes more stiffness. When she does have pain she can perform her stretches and exercise to decrease pain. She has been performing exercises daily. She is comfortable with continuing independently with home exercises. Reported Pain Level Pain Score 1,0: Self Report Pain Score 3,0: Self Report Assessment PT Clinical Summary Ewelina Hammond has completed 12 skilled PT visits for cervicalgia and TMJ. She is reporting overall improvements with less cervical pain and no jaw pain the last 2 weeks. She demonstrates no deviation with mouth opening, improved cervical AROM, good UE strength, and improved posture. She is independent in a home exercise program to continue posture, TMJ, and cervical exercises. Plan of Care PT Services Indicated No
--- NOTE | 2024-10-25 18:04 | PCSTNOTE ---
Patient called & cancelled scheduled appointment this date.
--- NOTE | 2024-11-22 09:52 | BUSTOPDC ---
Assessment and note entered by Leeanna Miller, [employer] Evaluation Information Assessment Status Discharge - Pt Not Present Diagnosis Dysphagia R13.10 ICD-10 Condition Codes (ST) Dysphagia, unspecified R13.1 Subjective Information Patient was referred for a skilled ST evaluation after being seen through ENT and completion of a modified barium swallow study indicating deficits in lingual base retraction and laryngeal elevation . Patient reported that she has had difficulty swallowing for the past year but has progressed in the past few months. She has a history of pain/ tingling in her hands and feet, some vision difficulties at times and balance problems. She had an episode of breathing problems resulting in the need for a rescue inhaler and steroids. She recently has been eliminating foods from her diet in including primarily dairy and gluten. She has noticed a slight improved in swallowing with omission of foods. Patient was seen through ENT with scope completed and adenoids and tonsils were not currently impacting swallowing function. A modified barium swallow study was completed 08-27-24 with deficits noted in lingual base retraction and laryngeal elevation. Patient often required excessive mastication and piecemeal deglutition with all consistencies trialed. Patient recently had an MRI and CT completed to rule out MS, lupus and other potential causes for the swallowing deficits. She was started on acid reflux medication one month ago but reports that she does not often experience reflux symptoms. She also reported that she has some difficulty with her speech with fluency problems occasionally. She reports to have good and bad days where her swallowing is better or worse. Patient has completed a total of [address] treatment sessions and has not returned since 10-11-24. Throughout treatment patient reported to notice overall improvements in swallowing function. Patient is discharged from skilled ST at this time . Reported Pain Level Pain Score 1,0: Self Report Pain Score 3,0: Self Report Pain Score 0: Self Report Pain Score 5,1: Self Report Pain Score 5,3: Self Report Pain Score 0: Self Report Pain Score 3,2: Self Report Pain Score 3,3: Self Report Pain Score 0: Self Report Pain Score 2,2: Self Report Pain Score 0: Self Report Pain Score 2,3: Self Report Pain Score 2,2: Self Report Pain Score 3,3: Self Report Pain Score 4,4: Self Report Pain Score 4,4: Self Report Assessment ST Clinical Summary Patient was referred for a skilled ST evaluation due to ongoing swallowing difficulties over the past year. The patient has recently had an MRI and CT due to increased difficulty with vision, balance, tingling in hands and feet along with swallowing difficulties. Modified barium swallow study 08-27-24 was performed with results below: Indicating decreased lingual base retraction, limited laryngeal elevation (incomplete minimal superior movement of thyroid cartilage with minimal approximation of arytenoids to epiglottic petiole), decreased mastication skills, delayed initiation of swallow to vallecula and pyriform sinuses, pharyngeal stripping wave was absent, pharyngeal contraction produced bilateral bulging, air between retracted tongue base and posterior pharyngeal wall, and esophageal retention with incidence of retrograde bolus flow through pharyngoesophageal segment. Recommendation was given for ENT to scope pharynx, GI to evaluate esophageal function and speech therapy to address oropharyngeal dysphagia. Patient has completed a total of [address] treatment sessions to target dysphagia with noted improvements through diet modification/training, compensatory techniques and swallowing exercises to improve overall strength/function. Patient did not return for more visits after the session on and will be discharged from ST at this time. Patient was given handouts to continue completion of swallowing exercises daily including; stephanie, chin tuck against resistance, falsetto pitch glides, tongue resistance exercises, effortful swallow and lingual retraction. Plan of Care Interventions Treatment of Swallowing Dysfunction Treatment Frequency and Discharge from skilled ST at this time. Duration
--- NOTE | 2024-11-22 09:52 | OPREHPOC ---
Outpatient Therapy Plan of Care This is a Multidisciplinary Plan of Care that may contain components documented by all disciplines (PT, OT, and ST.) PT Problem 1 PT Problem #1 Knowledge Deficit PT Goal 1 Goal / Goal Update independent and compliant with HEp Target Visit 6 Progress Met PT Problem 2 PT Problem #2 Pain PT Goal 1 Goal / Goal Update decrease pain at worst to 2/10 or less in the neck and R jaw Target Visit 12 Progress Partially Met PT Problem 3 PT Problem #3 Impaired Strength PT Goal 1 Goal / Goal Update 5/5 bilateral UE strength Target Visit 12 Progress Met PT Problem 4 PT Problem #4 Impaired Range of Motion PT Goal 1 Goal / Goal Update 45 degrees or better active cervical flex and ext -met 35 degrees or better active bilat cervical side bending -partially met 75 degrees or better active bilat cervical rotation -partially met Target Visit 12 Progress Partially Met PT Problem 5 PT Problem #5 Impaired Functional Mobility PT Goal 1 Goal / Goal Update NDI to display 10% or less functional deficits - not met patient to report no jaw popping or pain 5 out of 7 days in a week or better -met Target Visit [address] Problem [address] ST Problem #[address] Goal 1 Goal / Goal Update 1. Patient will participate in home programming to improve carryover/generalization of skills to home environment. Patient continued to participate in home programming and completion of swallowing exercises to improve strength/function. Target Visit [address] Problem 2 ST Problem #[address] Goal 1 Goal / Goal Update 1. Patient will utilize trained compensatory techniques to improve safety for tolerance of least restrictive diet without signs or symptoms of aspiration with minimal cues. Minimal difficulty with swallowing during the last ST session with goal met. Target Visit [address] Problem 3 ST Problem #[address] Goal 1 Goal / Goal Update 1. Patient will perform laryngeal elevation/ excursion exercises (falsetto, pitch glides) 10 reps for 3 sets with minimal cues. 20+ reps with minimal cues. Goal met. 2. Patient will perform stephanie 10 reps for 2 sets with minimal cues to improve movement of the pharynx. 15+ reps with moderate cues. 3. Patient will perform chin tuck against resistance 10 reps for 3 sets with minimal cues. 20+ reps with minimal cues with goal met. 4. Patient will perform lingual base strengthening exercises 10 reps for 3 sets with minimal cues. 10+ reps with minimal/moderate cues. Target Visit 10 Progress Partially Met
== END 2024-11-18 23:59 | disposition home or self-care (01) ==
LOC: CHSST 11:00
DX: M54.2 Cervicalgia (principal)
CPT/HCPCS: 92526; 92610; 97110; 97112; 97140; 97161; 97750